=== PATIENT | female | born 1950 | race Caucasian/White ===

== ENCOUNTER 2017-01-07 04:50 | Inpatient (IN) ==
[2017-01-07] MEDS ORDERED: Ondansetron 4 MG/2 ML VIAL IVP ONE (05:09)
[2017-01-07] MEDS ORDERED: 0.9 % Sodium Chloride 1,000 ML IVC ONE (05:09)
[2017-01-07 05:21] LABS: Basophils % 0.2 %; Eosinophils % 0.2 %; Hematocrit 32.4 % (35.3-44.9); Hemoglobin 11.4 g/dL (11.5-15.4); Immature Granulocytes % 0.7 % (0-4); Lymphocytes # 0.9 K/mcL (0.6-4.6); Lymphocytes % 9.8 %; Mean Corpuscular HGB Conc 35.2 g/dL (31.6-35.5); Mean Corpuscular Hemoglobin 34.7 pg (28.0-33.3); Mean Corpuscular Volume 98.5 fL (83.0-100.0); Mean Platelet Volume 9.2 fL (9.4-12.4); Monocytes # 0.4 K/mcL (0.0-1.3); Neutrophils # 7.5 K/mcL (1.6-8.9); Platelet Count 104 K/mcL (140-400); Red Blood Count 3.29 M/mcL (3.82-4.97); Red Cell Distribution Width 13.8 % (11.5-14.5); Segmented Neutrophils % 85.1 %
[2017-01-07 05:34] LABS: Bilirubin,Urine Negative (Negative); Blood,Urine Moderate (Negative); Clarity,Urine Cloudy (Clear); Color,Urine Yellow (Yellow); Glucose,Urine (UA) 100 mg/dL (Normal); Ketones,Urine Trace mg/dL (Negative); Leukocyte Esterase,Urine Large (Negative); Nitrite,Urine Positive (Negative); PH,Urine 6.5 pH Units (5.0-8.0); Protein,Urine Trace mg/dL (Neg-Trace); Specific Gravity,Urine 1.013 (1.010-1.025); Urobilinogen,Urine Normal (Normal)
[2017-01-07 05:37] LABS: Bacteria,Urine Many per hpf (None-Few); Hyaline Casts,Urine None Seen per lpf (None-Few); RBC,Urine 30-50 per hpf (0-3); Squamous Epithelial Cell,Urine Few per lpf (None-Few); WBC,Urine 50-100 per hpf (0-3)
[2017-01-07 05:38] LABS: Alanine Aminotransferase 25 Units/L (0-55); Albumin 4.2 g/dL (3.5-5.0); Albumin/Globulin Ratio 1.2 (1.1-2.2); Alkaline Phosphatase 109 Units/L (38-126); Aspartate Amino Transferase 23 Units/L (5-34); BUN/Creatinine Ratio 14 (6-26); Bilirubin,Direct 0.3 mg/dL (0.0-0.5); Bilirubin,Indirect 0.7 mg/dL (0.0-1.2); Blood Urea Nitrogen 11 mg/dL (7-20); Calcium 9.6 mg/dL (8.6-10.8); Carbon Dioxide 22 mEq/L (19-29); Chloride 106 mEq/L (98-109); Globulin 3.4 g/dL (2.4-3.5); Glucose 204 mg/dL (70-99); Osmolality,Calculated 297 (280-300); Potassium 3.4 mEq/L (3.5-4.5); Sodium 141 mEq/L (136-145); Total Protein 7.6 g/dL (6.0-8.3); eGFR For African Americans > 60 (> 60); eGFR For Non-African Americans > 60 (> 60)
[2017-01-07 05:39] LABS: Lipase < 10 Units/L (8-78)
--- NOTE | 2017-01-07 06:51 | Emergency Department Note ---
Disposition Clinical Impression: UTI (urinary tract infection) Qualifiers: Urinary tract infection type: acute cystitis Hematuria presence: with hematuria Qualified Code(s): N30.01 - Acute cystitis with hematuria Disposition: Still a Patient Condition: Fair Referrals: NONE,PCP [Primary Care Provider] - Forms: Work/School Release, ED Satisfaction Letter Abdominal Pain HPI - General Chief Complaint: ED Abdominal Pain Stated Complaint: Abdominal Pain/Nausea/Vomiting Time Seen by Provider: 01/07/17 04:55 Source: patient, EMS Mode of arrival: EMS Limitations: no limitations Nursing Notes Reviewed: Yes Vital Signs Reviewed: Yes - History of Present Illness Pt Subjective Complaint: abdominal pain Onset (ago): hour(s) Consistency: constant, Worsening Location: suprapubic Pain Severity: mild Pain Scale: 2 Quality: fullness, dull Radiation: none Migration to: no migration Improves with: nothing Worsens with: nothing Context: recent antibiotic use Associated symptoms: Reports: nausea, vomiting, chills. Denies: diarrhea, fever , constipation, dysuria, hematemesis, hematochezia, melena, hematuria, anorexia , syncope Treatments prior to arrival: none - Related Data Allergies Allergy/AdvReac Type Severity Reaction Status Date / Time naproxen AdvReac Nausea Verified 01/07/17 04:52 All systems ED: reviewed and negative except as stated. Review of Systems: As Per HPI Constitutional: Reports: chills. Denies: fever, night sweats Cardiovascular: Denies: chest pain, palpitations, dyspnea on exertion, orthopnea , edema, syncope Respiratory: Denies: cough, dyspnea, wheezes Gastrointestinal: Reports: as per HPI, abdominal pain, nausea, vomiting. Denies : diarrhea, constipation, hematemesis, melena, hematochezia Genitourinary: Denies: urgency, dysuria, frequency, hematuria, discharge Musculoskeletal: Denies: back pain, neck pain, joint swelling, arthralgia Integumentary: Denies: rash Neurological: Denies: headache, weakness Hematological/Lymphatic: Denies: easy bleeding, easy bruising Abdominal Pain PMH - Past Medical History Medical history: Reports: cancer, hypertension Female Surgical History: Reports: cancer surgery, cholecystectomy, coronary bypass (CABG), hysterectomy Psychiatric history: Reports: depression - Social History Smoking status: Never smoker Alcohol use: Reports: none Drug use: Reports: none Physical Exam - General Limitations: no limitations General appearance: alert, in no apparent distress - Head Head exam: atraumatic, normocephalic, normal inspection - Eye Eye exam: Present: normal appearance, PERRL. Absent: scleral icterus, conjunctival injection, periorbital swelling - ENT ENT exam: normal exam, normal oropharynx, mucous membranes moist - Neck Neck exam: Present: normal inspection, full ROM, trachea midline. Absent: meningismus - Chest Chest inspection: Present: normal inspection - Respiratory Respiratory exam: Present: normal lung sounds bilaterally. Absent: respiratory distress, wheezes, stridor - Cardiovascular Cardiovascular exam: Present: regular rate, normal rhythm, normal heart sounds - Abdominal Exam Abdominal exam: Present: soft, tenderness, normal bowel sounds. Absent: distention, guarding, rebound, rigidity, organomegaly, ascites, mass, pulsatile mass - Extremities Exam Extremities exam: Present: normal inspection, full ROM - Expanded Lower Extremity Exam Gait: observed and normal - Back Exam Back exam: Present: normal inspection, full ROM. Absent: CVA tenderness (R), CVA tenderness (L) - Neurological Exam Neurological exam: Present: alert, oriented X3, CN II-XII intact - Psychiatric Psychiatric exam: Present: normal affect, normal mood - Skin Skin exam: Present: warm, dry, intact, normal color Course Course Narrative: Patient presents from home by squad for evaluation of abdominal pain. It started acutely and was associated with nausea and vomiting. She has had no diarrhea or constipation. She has never had any abdominal surgeries. She denies dysuria, increased frequency, urgency or hematuria. She appears uncomfortable but is nontoxic. Vitals are normal. She has no fever. Labs and CT have been ordered as she is tender to palpation of the lower abdomen. EKG was done as well. It shows a normal sinus rhythm with a right ventricular conduction delay. She does not have a previous EKG available for comparison. Patient's labs show a significant urinary tract infection with hematuria. Blood work is unremarkable. Preliminary CT report shows obstructive uropathy with a 3 mm stone in the distal left ureter, possibly another stone but evaluation is suboptimal due to atherosclerotic plaque in the adjacent vessels. She also has intrarenal stones. Urology has been paged. Case has been discussed with Dr. Linder. He has seen the patient and agrees with the assessment, plan. Care of this patient is being transferred to the day shift provider Sabas Calvin CNP, after discussion of the case. Vital Signs Temperature 97.5 F L 01/07/17 04:52 Pulse Rate 74 01/07/17 04:52 Respiratory Rate 22 01/07/17 04:52 Blood Pressure 180/90 01/07/17 04:52 O2 Sat by Pulse Oximetry 100 01/07/17 04:52 Temperature 97.5 F L 01/07/17 04:52 Pulse Rate 76 01/07/17 06:23 Respiratory Rate 18 01/07/17 06:23 Blood Pressure 143/51 01/07/17 06:23 O2 Sat by Pulse Oximetry 94 01/07/17 06:23 Oxygen Delivery Oxygen Delivery Room Air Abdominal Pain - Medical Records Medical records reviewed: Yes I reviewed the patient's medical records. Laboratory Last Values WBC 8.8 K/mcL (4.3-11.1) 01/07/17 05:05 RBC 3.29 M/mcL (3.82-4.97) L 01/07/17 05:05 Hgb 11.4 g/dL (11.5-15.4) L 01/07/17 05:05 Hct 32.4 % (35.3-44.9) L 01/07/17 05:05 MCV 98.5 fL (83.0-100.0) 01/07/17 05:05 MCH 34.7 pg (28.0-33.3) H 01/07/17 05:05 MCHC 35.2 g/dL (31.6-35.5) 01/07/17 05:05 RDW 13.8 % (11.5-14.5) 01/07/17 05:05 Plt Count 104 K/mcL (140-400) L 01/07/17 05:05 MPV 9.2 fL (9.4-12.4) L 01/07/17 05:05 Immature Gran % 0.7 % (0-4) 01/07/17 05:05 Seg Neutrophils % 85.1 % 01/07/17 05:05 Lymphocytes % 9.8 % 01/07/17 05:05 Monocytes % 4.0 % 01/07/17 05:05 Eosinophils % 0.2 % 01/07/17 05:05 Basophils % 0.2 % 01/07/17 05:05 Neutrophils # 7.5 K/mcL (1.6-8.9) 01/07/17 05:05 Lymphocytes # 0.9 K/mcL (0.6-4.6) 01/07/17 05:05 Monocytes # 0.4 K/mcL (0.0-1.3) 01/07/17 05:05 Eosinophils # 0.0 K/mcL (0.0-0.6) 01/07/17 05:05 Basophils # 0.0 K/mcL (0.0-0.2) 01/07/17 05:05 Sodium 141 mEq/L (136-145) 01/07/17 05:05 Potassium 3.4 mEq/L (3.5-4.5) L 01/07/17 05:05 Chloride 106 mEq/L (98-109) 01/07/17 05:05 Carbon Dioxide 22 mEq/L (19-29) 01/07/17 05:05 BUN 11 mg/dL (7-20) 01/07/17 05:05 Creatinine 0.81 mg/dL (0.57-1.11) 01/07/17 05:05 Est GFR ( Amer) > 60 (> 60) 01/07/17 05:05 Est GFR (Non-Af Amer) > 60 (> 60) 01/07/17 05:05 BUN/Creatinine Ratio 14 (6-26) 01/07/17 05:05 Glucose 204 mg/dL (70-99) H 01/07/17 05:05 Calculated Osmolality 297 (280-300) 01/07/17 05:05 Calcium 9.6 mg/dL (8.6-10.8) 01/07/17 05:05 Total Bilirubin 1.0 mg/dL (0.2-1.2) 01/07/17 05:05 Direct Bilirubin 0.3 mg/dL (0.0-0.5) 01/07/17 05:05 Indirect Bilirubin 0.7 mg/dL (0.0-1.2) 01/07/17 05:05 AST 23 Units/L (5-34) 01/07/17 05:05 ALT 25 Units/L (0-55) 01/07/17 05:05 Alkaline Phosphatase 109 Units/L (38-126) 01/07/17 05:05 Troponin I 0.00 ng/mL (0-0.03) 01/07/17 05:05 Serum Total Protein 7.6 g/dL (6.0-8.3) 01/07/17 05:05 Albumin 4.2 g/dL (3.5-5.0) 01/07/17 05:05 Globulin 3.4 g/dL (2.4-3.5) 01/07/17 05:05 Albumin/Globulin Ratio 1.2 (1.1-2.2) 01/07/17 05:05 Lipase < 10 Units/L (8-78) 01/07/17 05:05 Urine Color Yellow (Yellow) 01/07/17 05:21 Urine Clarity Cloudy (Clear) A 01/07/17 05:21 Urine pH 6.5 pH Units (5.0-8.0) 01/07/17 05:21 Ur Specific [place] 1.013 (1.010-1.025) 01/07/17 05:21 Urine Protein Trace mg/dL (Neg-Trace) 01/07/17 05:21 Urine Glucose (UA) 100 mg/dL (Normal) H 01/07/17 05:21 Urine Ketones Trace mg/dL (Negative) H 01/07/17 05:21 Urine Blood Moderate (Negative) H 01/07/17 05:21 Urine Nitrite Positive (Negative) A 01/07/17 05:21 Urine Bilirubin Negative (Negative) 01/07/17 05:21 Urine Urobilinogen Normal mg/dL (Normal) 01/07/17 05:21 Ur Leukocyte Esterase Large (Negative) H 01/07/17 05:21 Urine Microscopic RBC 30-50 per hpf (0-3) H 01/07/17 05:21 Urine Microscopic WBC 50-100 per hpf (0-3) H 01/07/17 05:21 Ur Squamous Epith Cells Few per lpf (None-Few) 01/07/17 05:21 Urine Bacteria Many per hpf (None-Few) H 01/07/17 05:21 Hyaline Casts None Seen per lpf (None-Few) 01/07/17 05:21 Ur Culture Indicated? YES (NO) A 01/07/17 05:21 - Lab Data Lab results reviewed: Yes I reviewed the patient's lab results. Lab results narrative: Laboratory Last Values WBC 8.8 K/mcL (4.3-11.1) 01/07/17 05:05 RBC 3.29 M/mcL (3.82-4.97) L 01/07/17 05:05 Hgb 11.4 g/dL (11.5-15.4) L 01/07/17 05:05 Hct 32.4 % (35.3-44.9) L 01/07/17 05:05 MCV 98.5 fL (83.0-100.0) 01/07/17 05:05 MCH 34.7 pg (28.0-33.3) H 01/07/17 05:05 MCHC 35.2 g/dL (31.6-35.5) 01/07/17 05:05 RDW 13.8 % (11.5-14.5) 01/07/17 05:05 Plt Count 104 K/mcL (140-400) L 01/07/17 05:05 MPV 9.2 fL (9.4-12.4) L 01/07/17 05:05 Immature Gran % 0.7 % (0-4) 01/07/17 05:05 Seg Neutrophils % 85.1 % 01/07/17 05:05 Lymphocytes % 9.8 % 01/07/17 05:05 Monocytes % 4.0 % 01/07/17 05:05 Eosinophils % 0.2 % 01/07/17 05:05 Basophils % 0.2 % 01/07/17 05:05 Neutrophils # 7.5 K/mcL (1.6-8.9) 01/07/17 05:05 Lymphocytes # 0.9 K/mcL (0.6-4.6) 01/07/17 05:05 Monocytes # 0.4 K/mcL (0.0-1.3) 01/07/17 05:05 Eosinophils # 0.0 K/mcL (0.0-0.6) 01/07/17 05:05 Basophils # 0.0 K/mcL (0.0-0.2) 01/07/17 05:05 Sodium 141 mEq/L (136-145) 01/07/17 05:05 Potassium 3.4 mEq/L (3.5-4.5) L 01/07/17 05:05 Chloride 106 mEq/L (98-109) 01/07/17 05:05 Carbon Dioxide 22 mEq/L (19-29) 01/07/17 05:05 BUN 11 mg/dL (7-20) 01/07/17 05:05 Creatinine 0.81 mg/dL (0.57-1.11) 01/07/17 05:05 Est GFR ( Amer) > 60 (> 60) 01/07/17 05:05 Est GFR (Non-Af Amer) > 60 (> 60) 01/07/17 05:05 BUN/Creatinine Ratio 14 (6-26) 01/07/17 05:05 Glucose 204 mg/dL (70-99) H 01/07/17 05:05 Calculated Osmolality 297 (280-300) 01/07/17 05:05 Calcium 9.6 mg/dL (8.6-10.8) 01/07/17 05:05 Total Bilirubin 1.0 mg/dL (0.2-1.2) 01/07/17 05:05 Direct Bilirubin 0.3 mg/dL (0.0-0.5) 01/07/17 05:05 Indirect Bilirubin 0.7 mg/dL (0.0-1.2) 01/07/17 05:05 AST 23 Units/L (5-34) 01/07/17 05:05 ALT 25 Units/L (0-55) 01/07/17 05:05 Alkaline Phosphatase 109 Units/L (38-126) 01/07/17 05:05 Troponin I 0.00 ng/mL (0-0.03) 01/07/17 05:05 Serum Total Protein 7.6 g/dL (6.0-8.3) 01/07/17 05:05 Albumin 4.2 g/dL (3.5-5.0) 01/07/17 05:05 Globulin 3.4 g/dL (2.4-3.5) 01/07/17 05:05 Albumin/Globulin Ratio 1.2 (1.1-2.2) 01/07/17 05:05 Lipase < 10 Units/L (8-78) 01/07/17 05:05 Urine Color Yellow (Yellow) 01/07/17 05:21 Urine Clarity Cloudy (Clear) A 01/07/17 05:21 Urine pH 6.5 pH Units (5.0-8.0) 01/07/17 05:21 Ur Specific [place] 1.013 (1.010-1.025) 01/07/17 05:21 Urine Protein Trace mg/dL (Neg-Trace) 01/07/17 05:21 Urine Glucose (UA) 100 mg/dL (Normal) H 01/07/17 05:21 Urine Ketones Trace mg/dL (Negative) H 01/07/17 05:21 Urine Blood Moderate (Negative) H 01/07/17 05:21 Urine Nitrite Positive (Negative) A 01/07/17 05:21 Urine Bilirubin Negative (Negative) 01/07/17 05:21 Urine Urobilinogen Normal mg/dL (Normal) 01/07/17 05:21 Ur Leukocyte Esterase Large (Negative) H 01/07/17 05:21 Urine Microscopic RBC 30-50 per hpf (0-3) H 01/07/17 05:21 Urine Microscopic WBC 50-100 per hpf (0-3) H 01/07/17 05:21 Ur Squamous Epith Cells Few per lpf (None-Few) 01/07/17 05:21 Urine Bacteria Many per hpf (None-Few) H 01/07/17 05:21 Hyaline Casts None Seen per lpf (None-Few) 01/07/17 05:21 Ur Culture Indicated? YES (NO) A 01/07/17 05:21 Result diagrams: 01/07/17 05:05 01/07/17 05:05 Lab Results 01/07/17 01/07/17 01/07/17 Range/Units 05:05 05:05 05:05 WBC 8.8 (4.3-11.1) K/mcL RBC 3.29 L (3.82-4.97) M/mcL Hgb 11.4 L (11.5-15.4) g/dL Hct 32.4 L (35.3-44.9) % MCV 98.5 (83.0-100.0) fL MCH 34.7 H (28.0-33.3) pg MCHC 35.2 (31.6-35.5) g/dL RDW 13.8 (11.5-14.5) % Plt Count 104 L (140-400) K/mcL MPV 9.2 L (9.4-12.4) fL Immature Gran % 0.7 (0-4) % Seg Neutrophils % 85.1 % Lymphocytes % 9.8 % Monocytes % 4.0 % Eosinophils % 0.2 % Basophils % 0.2 % Neutrophils # 7.5 (1.6-8.9) K/mcL Lymphocytes # 0.9 (0.6-4.6) K/mcL Monocytes # 0.4 (0.0-1.3) K/mcL Eosinophils # 0.0 (0.0-0.6) K/mcL Basophils # 0.0 (0.0-0.2) K/mcL Sodium 141 (136-145) mEq/L Potassium 3.4 L (3.5-4.5) mEq/L Chloride 106 (98-109) mEq/L Carbon Dioxide 22 (19-29) mEq/L BUN 11 (7-20) mg/dL Creatinine 0.81 (0.57-1.11) mg/dL Est GFR ( Amer) > 60 (> 60) Est GFR (Non-Af Amer) > 60 (> 60) BUN/Creatinine Ratio 14 (6-26) Glucose 204 H (70-99) mg/dL Calculated Osmolality 297 (280-300) Calcium 9.6 (8.6-10.8) mg/dL Total Bilirubin 1.0 (0.2-1.2) mg/dL Direct Bilirubin 0.3 (0.0-0.5) mg/dL Indirect Bilirubin 0.7 (0.0-1.2) mg/dL AST 23 (5-34) Units/L ALT 25 (0-55) Units/L Alkaline Phosphatase 109 (38-126) Units/L Troponin I 0.00 (0-0.03) ng/mL Serum Total Protein 7.6 (6.0-8.3) g/dL Albumin 4.2 (3.5-5.0) g/dL Globulin 3.4 (2.4-3.5) g/dL Albumin/Globulin Ratio 1.2 (1.1-2.2) Lipase < 10 (8-78) Units/L Urine Color (Yellow) Urine Clarity (Clear) Urine pH (5.0-8.0) pH Units Ur Specific [place] (1.010-1.025) Urine Protein (Neg-Trace) mg/dL Urine Glucose (UA) (Normal) mg/dL Urine Ketones (Negative) mg/dL Urine Blood (Negative) Urine Nitrite (Negative) Urine Bilirubin (Negative) Urine Urobilinogen (Normal) mg/dL Ur Leukocyte Esterase (Negative) Urine Microscopic RBC (0-3) per hpf Urine Microscopic WBC (0-3) per hpf Ur Squamous Epith Cells (None-Few) per lpf Urine Bacteria (None-Few) per hpf Hyaline Casts (None-Few) per lpf Ur Culture Indicated? (NO) 01/07/17 Range/Units 05:21 WBC (4.3-11.1) K/mcL RBC (3.82-4.97) M/mcL Hgb (11.5-15.4) g/dL Hct (35.3-44.9) % MCV (83.0-100.0) fL MCH (28.0-33.3) pg MCHC (31.6-35.5) g/dL RDW (11.5-14.5) % Plt Count (140-400) K/mcL MPV (9.4-12.4) fL Immature Gran % (0-4) % Seg Neutrophils % % Lymphocytes % % Monocytes % % Eosinophils % % Basophils % % Neutrophils # (1.6-8.9) K/mcL Lymphocytes # (0.6-4.6) K/mcL Monocytes # (0.0-1.3) K/mcL Eosinophils # (0.0-0.6) K/mcL Basophils # (0.0-0.2) K/mcL Sodium (136-145) mEq/L Potassium (3.5-4.5) mEq/L Chloride (98-109) mEq/L Carbon Dioxide (19-29) mEq/L BUN (7-20) mg/dL Creatinine (0.57-1.11) mg/dL Est GFR ( Amer) (> 60) Est GFR (Non-Af Amer) (> 60) BUN/Creatinine Ratio (6-26) Glucose (70-99) mg/dL Calculated Osmolality (280-300) Calcium (8.6-10.8) mg/dL Total Bilirubin (0.2-1.2) mg/dL Direct Bilirubin (0.0-0.5) mg/dL Indirect Bilirubin (0.0-1.2) mg/dL AST (5-34) Units/L ALT (0-55) Units/L Alkaline Phosphatase (38-126) Units/L Troponin I (0-0.03) ng/mL Serum Total Protein (6.0-8.3) g/dL Albumin (3.5-5.0) g/dL Globulin (2.4-3.5) g/dL Albumin/Globulin Ratio (1.1-2.2) Lipase (8-78) Units/L Urine Color Yellow (Yellow) Urine Clarity Cloudy A (Clear) Urine pH 6.5 (5.0-8.0) pH Units Ur Specific [place] 1.013 (1.010-1.025) Urine Protein Trace (Neg-Trace) mg/dL Urine Glucose (UA) 100 H (Normal) mg/dL Urine Ketones Trace H (Negative) mg/dL Urine Blood Moderate H (Negative) Urine Nitrite Positive A (Negative) Urine Bilirubin Negative (Negative) Urine Urobilinogen Normal (Normal) mg/dL Ur Leukocyte Esterase Large H (Negative) Urine Microscopic RBC 30-50 H (0-3) per hpf Urine Microscopic WBC 50-100 H (0-3) per hpf Ur Squamous Epith Cells Few (None-Few) per lpf Urine Bacteria Many H (None-Few) per hpf Hyaline Casts None Seen (None-Few) per lpf Ur Culture Indicated? YES A (NO) - Radiology Data Radiology results reviewed: Yes I reviewed the patient's radiology results. Abdomen/Pelvis CT 01/07/17 05:18 IMPRESSION: 1. Findings consistent with presence of left-sided obstructive uropathy. Optimum evaluation of the left distal ureter 4 radiopaque calculus is somewhat suboptimal due to presence of prominent calcific atherosclerotic plaque within adjacent internal iliac vessels. There is question of presence of 3 mm calculus within the left distal ureter in the pelvis. Follow-up ureteroscopy/ retrograde pyelogram may be helpful for more complete evaluation. 2. Findings consistent with presence of bilateral intrarenal calculi. On the right, 9 mm calculus is visualized in the region of the renal pelvis as described above. D/ / Lance Tristan MD / Lance Tristan MD Interpreting Provider: Lance Tristan MD
--- NOTE | 2017-01-07 07:11 | Emergency Department Note ---
Disposition Clinical Impression: Acute unilateral obstructive uropathy, Ureteral calculus, left UTI (urinary tract infection) Qualifiers: Urinary tract infection type: acute cystitis Hematuria presence: with hematuria Qualified Code(s): N30.01 - Acute cystitis with hematuria Disposition: Admitted As Inpatient Condition: Fair Referrals: NONE,PCP [Primary Care Provider] - Forms: ED Satisfaction Letter, Work/School Release Time of Disposition: 07:12 Abdominal Pain HPI - General Chief Complaint: ED Abdominal Pain Stated Complaint: Abdominal Pain/Nausea/Vomiting Time Seen by Provider: 01/07/17 04:55 Source: patient, EMS Mode of arrival: EMS - History of Present Illness Pt Subjective Complaint: abdominal pain Location: suprapubic Pain Severity: mild Pain Scale: 2 Quality: fullness, dull Migration to: no migration Improves with: nothing Worsens with: nothing Context: recent antibiotic use Associated symptoms: Reports: nausea, vomiting, chills. Denies: diarrhea, fever , constipation, dysuria, hematemesis, hematochezia, melena, hematuria, anorexia , syncope - Related Data Allergies Allergy/AdvReac Type Severity Reaction Status Date / Time naproxen AdvReac Nausea Verified 01/07/17 04:52 Constitutional: Reports: chills. Denies: fever, night sweats Cardiovascular: Denies: chest pain, palpitations, dyspnea on exertion, orthopnea , edema, syncope Respiratory: Denies: cough, dyspnea, wheezes Gastrointestinal: Reports: as per HPI, abdominal pain, nausea, vomiting. Denies : diarrhea, constipation, hematemesis, melena, hematochezia Genitourinary: Denies: urgency, dysuria, frequency, hematuria, discharge Musculoskeletal: Denies: back pain, neck pain, joint swelling, arthralgia Integumentary: Denies: rash Neurological: Denies: headache, weakness Hematological/Lymphatic: Denies: easy bleeding, easy bruising Abdominal Pain PMH - Past Medical History Medical history: Reports: cancer, hypertension Female Surgical History: Reports: cancer surgery, cholecystectomy, coronary bypass (CABG), hysterectomy Psychiatric history: Reports: depression - Social History Smoking status: Never smoker Alcohol use: Reports: none Drug use: Reports: none Physical Exam - General Limitations: no limitations General appearance: alert, in no apparent distress Course Course Narrative: 0600: I have assumed care of this patient from Bianca Boyle PA-C due to mid- level shift change. Please see Bianca's notes for any care and documentation prior to my arrival. Briefly, the patient is a 66-year-old alert and oriented nontoxic appearing female who presented by EMS for complaints of a sudden onset of left lower quadrant pain as well as suprapubic discomfort, chills, nausea, and vomiting. She denied any outright fevers, diarrhea, constipation, or urinary symptoms. Laboratory results were obtained and a CT of the abdomen and pelvis was also performed. The patient is positive for a urinary tract infection with hematuria. CT imaging showed a left-sided obstructive uropathy from presumably a 3 mm distal ureter calculus. Dr. Linder has had a face-to- face evaluation with the patient and recommends urology consultation. 0705: I spoke with Dr. Baltazar, urologist nutrition instructor. Dr. Baltazar recommends the patient be admitted to the hospitalist service for IV antibiotics and inpatient urology consultation. At this time, I am awaiting a return call from the [facility] hospitalist. The patient has been made aware of this plan and is in agreement. She verbalizes no complaints or concerns at this time. 0745: I spoke with Dr. Perdue of the hospitalist service. Dr. Perdue has accepted the patient for admission to his service with urology consultation. Vital Signs Temperature 97.5 F L 01/07/17 04:52 Pulse Rate 74 01/07/17 04:52 Respiratory Rate 22 01/07/17 04:52 Blood Pressure 180/90 01/07/17 04:52 O2 Sat by Pulse Oximetry 100 01/07/17 04:52 Temperature 97.5 F L 01/07/17 04:52 Pulse Rate 76 01/07/17 06:23 Respiratory Rate 18 01/07/17 06:23 Blood Pressure 143/51 01/07/17 06:23 O2 Sat by Pulse Oximetry 94 01/07/17 06:23 Oxygen Delivery Oxygen Delivery Room Air Abdominal Pain - Medical Records Medical records reviewed: Yes I reviewed the patient's medical records. - Lab Data Lab results reviewed: Yes I reviewed the patient's lab results. Lab results narrative: Laboratory Last Values WBC 8.8 K/mcL (4.3-11.1) 01/07/17 05:05 RBC 3.29 M/mcL (3.82-4.97) L 01/07/17 05:05 Hgb 11.4 g/dL (11.5-15.4) L 01/07/17 05:05 Hct 32.4 % (35.3-44.9) L 01/07/17 05:05 MCV 98.5 fL (83.0-100.0) 01/07/17 05:05 MCH 34.7 pg (28.0-33.3) H 01/07/17 05:05 MCHC 35.2 g/dL (31.6-35.5) 01/07/17 05:05 RDW 13.8 % (11.5-14.5) 01/07/17 05:05 Plt Count 104 K/mcL (140-400) L 01/07/17 05:05 MPV 9.2 fL (9.4-12.4) L 01/07/17 05:05 Immature Gran % 0.7 % (0-4) 01/07/17 05:05 Seg Neutrophils % 85.1 % 01/07/17 05:05 Lymphocytes % 9.8 % 01/07/17 05:05 Monocytes % 4.0 % 01/07/17 05:05 Eosinophils % 0.2 % 01/07/17 05:05 Basophils % 0.2 % 01/07/17 05:05 Neutrophils # 7.5 K/mcL (1.6-8.9) 01/07/17 05:05 Lymphocytes # 0.9 K/mcL (0.6-4.6) 01/07/17 05:05 Monocytes # 0.4 K/mcL (0.0-1.3) 01/07/17 05:05 Eosinophils # 0.0 K/mcL (0.0-0.6) 01/07/17 05:05 Basophils # 0.0 K/mcL (0.0-0.2) 01/07/17 05:05 Sodium 141 mEq/L (136-145) 01/07/17 05:05 Potassium 3.4 mEq/L (3.5-4.5) L 01/07/17 05:05 Chloride 106 mEq/L (98-109) 01/07/17 05:05 Carbon Dioxide 22 mEq/L (19-29) 01/07/17 05:05 BUN 11 mg/dL (7-20) 01/07/17 05:05 Creatinine 0.81 mg/dL (0.57-1.11) 01/07/17 05:05 Est GFR ( Amer) > 60 (> 60) 01/07/17 05:05 Est GFR (Non-Af Amer) > 60 (> 60) 01/07/17 05:05 BUN/Creatinine Ratio 14 (6-26) 01/07/17 05:05 Glucose 204 mg/dL (70-99) H 01/07/17 05:05 Calculated Osmolality 297 (280-300) 01/07/17 05:05 Calcium 9.6 mg/dL (8.6-10.8) 01/07/17 05:05 Total Bilirubin 1.0 mg/dL (0.2-1.2) 01/07/17 05:05 Direct Bilirubin 0.3 mg/dL (0.0-0.5) 01/07/17 05:05 Indirect Bilirubin 0.7 mg/dL (0.0-1.2) 01/07/17 05:05 AST 23 Units/L (5-34) 01/07/17 05:05 ALT 25 Units/L (0-55) 01/07/17 05:05 Alkaline Phosphatase 109 Units/L (38-126) 01/07/17 05:05 Troponin I 0.00 ng/mL (0-0.03) 01/07/17 05:05 Serum Total Protein 7.6 g/dL (6.0-8.3) 01/07/17 05:05 Albumin 4.2 g/dL (3.5-5.0) 01/07/17 05:05 Globulin 3.4 g/dL (2.4-3.5) 01/07/17 05:05 Albumin/Globulin Ratio 1.2 (1.1-2.2) 01/07/17 05:05 Lipase < 10 Units/L (8-78) 01/07/17 05:05 Urine Color Yellow (Yellow) 01/07/17 05:21 Urine Clarity Cloudy (Clear) A 01/07/17 05:21 Urine pH 6.5 pH Units (5.0-8.0) 01/07/17 05:21 Ur Specific [place] 1.013 (1.010-1.025) 01/07/17 05:21 Urine Protein Trace mg/dL (Neg-Trace) 01/07/17 05:21 Urine Glucose (UA) 100 mg/dL (Normal) H 01/07/17 05:21 Urine Ketones Trace mg/dL (Negative) H 01/07/17 05:21 Urine Blood Moderate (Negative) H 01/07/17 05:21 Urine Nitrite Positive (Negative) A 01/07/17 05:21 Urine Bilirubin Negative (Negative) 01/07/17 05:21 Urine Urobilinogen Normal mg/dL (Normal) 01/07/17 05:21 Ur Leukocyte Esterase Large (Negative) H 01/07/17 05:21 Urine Microscopic RBC 30-50 per hpf (0-3) H 01/07/17 05:21 Urine Microscopic WBC 50-100 per hpf (0-3) H 01/07/17 05:21 Ur Squamous Epith Cells Few per lpf (None-Few) 01/07/17 05:21 Urine Bacteria Many per hpf (None-Few) H 01/07/17 05:21 Hyaline Casts None Seen per lpf (None-Few) 01/07/17 05:21 Ur Culture Indicated? YES (NO) A 01/07/17 05:21 Result diagrams: 01/07/17 05:05 01/07/17 05:05 Lab Results 01/07/17 01/07/17 01/07/17 Range/Units 05:05 05:05 05:05 WBC 8.8 (4.3-11.1) K/mcL RBC 3.29 L (3.82-4.97) M/mcL Hgb 11.4 L (11.5-15.4) g/dL Hct 32.4 L (35.3-44.9) % MCV 98.5 (83.0-100.0) fL MCH 34.7 H (28.0-33.3) pg MCHC 35.2 (31.6-35.5) g/dL RDW 13.8 (11.5-14.5) % Plt Count 104 L (140-400) K/mcL MPV 9.2 L (9.4-12.4) fL Immature Gran % 0.7 (0-4) % Seg Neutrophils % 85.1 % Lymphocytes % 9.8 % Monocytes % 4.0 % Eosinophils % 0.2 % Basophils % 0.2 % Neutrophils # 7.5 (1.6-8.9) K/mcL Lymphocytes # 0.9 (0.6-4.6) K/mcL Monocytes # 0.4 (0.0-1.3) K/mcL Eosinophils # 0.0 (0.0-0.6) K/mcL Basophils # 0.0 (0.0-0.2) K/mcL Sodium 141 (136-145) mEq/L Potassium 3.4 L (3.5-4.5) mEq/L Chloride 106 (98-109) mEq/L Carbon Dioxide 22 (19-29) mEq/L BUN 11 (7-20) mg/dL Creatinine 0.81 (0.57-1.11) mg/dL Est GFR ( Amer) > 60 (> 60) Est GFR (Non-Af Amer) > 60 (> 60) BUN/Creatinine Ratio 14 (6-26) Glucose 204 H (70-99) mg/dL Calculated Osmolality 297 (280-300) Calcium 9.6 (8.6-10.8) mg/dL Total Bilirubin 1.0 (0.2-1.2) mg/dL Direct Bilirubin 0.3 (0.0-0.5) mg/dL Indirect Bilirubin 0.7 (0.0-1.2) mg/dL AST 23 (5-34) Units/L ALT 25 (0-55) Units/L Alkaline Phosphatase 109 (38-126) Units/L Troponin I 0.00 (0-0.03) ng/mL Serum Total Protein 7.6 (6.0-8.3) g/dL Albumin 4.2 (3.5-5.0) g/dL Globulin 3.4 (2.4-3.5) g/dL Albumin/Globulin Ratio 1.2 (1.1-2.2) Lipase < 10 (8-78) Units/L Urine Color (Yellow) Urine Clarity (Clear) Urine pH (5.0-8.0) pH Units Ur Specific [place] (1.010-1.025) Urine Protein (Neg-Trace) mg/dL Urine Glucose (UA) (Normal) mg/dL Urine Ketones (Negative) mg/dL Urine Blood (Negative) Urine Nitrite (Negative) Urine Bilirubin (Negative) Urine Urobilinogen (Normal) mg/dL Ur Leukocyte Esterase (Negative) Urine Microscopic RBC (0-3) per hpf Urine Microscopic WBC (0-3) per hpf Ur Squamous Epith Cells (None-Few) per lpf Urine Bacteria (None-Few) per hpf Hyaline Casts (None-Few) per lpf Ur Culture Indicated? (NO) 01/07/17 Range/Units 05:21 WBC (4.3-11.1) K/mcL RBC (3.82-4.97) M/mcL Hgb (11.5-15.4) g/dL Hct (35.3-44.9) % MCV (83.0-100.0) fL MCH (28.0-33.3) pg MCHC (31.6-35.5) g/dL RDW (11.5-14.5) % Plt Count (140-400) K/mcL MPV (9.4-12.4) fL Immature Gran % (0-4) % Seg Neutrophils % % Lymphocytes % % Monocytes % % Eosinophils % % Basophils % % Neutrophils # (1.6-8.9) K/mcL Lymphocytes # (0.6-4.6) K/mcL Monocytes # (0.0-1.3) K/mcL Eosinophils # (0.0-0.6) K/mcL Basophils # (0.0-0.2) K/mcL Sodium (136-145) mEq/L Potassium (3.5-4.5) mEq/L Chloride (98-109) mEq/L Carbon Dioxide (19-29) mEq/L BUN (7-20) mg/dL Creatinine (0.57-1.11) mg/dL Est GFR ( Amer) (> 60) Est GFR (Non-Af Amer) (> 60) BUN/Creatinine Ratio (6-26) Glucose (70-99) mg/dL Calculated Osmolality (280-300) Calcium (8.6-10.8) mg/dL Total Bilirubin (0.2-1.2) mg/dL Direct Bilirubin (0.0-0.5) mg/dL Indirect Bilirubin (0.0-1.2) mg/dL AST (5-34) Units/L ALT (0-55) Units/L Alkaline Phosphatase (38-126) Units/L Troponin I (0-0.03) ng/mL Serum Total Protein (6.0-8.3) g/dL Albumin (3.5-5.0) g/dL Globulin (2.4-3.5) g/dL Albumin/Globulin Ratio (1.1-2.2) Lipase (8-78) Units/L Urine Color Yellow (Yellow) Urine Clarity Cloudy A (Clear) Urine pH 6.5 (5.0-8.0) pH Units Ur Specific [place] 1.013 (1.010-1.025) Urine Protein Trace (Neg-Trace) mg/dL Urine Glucose (UA) 100 H (Normal) mg/dL Urine Ketones Trace H (Negative) mg/dL Urine Blood Moderate H (Negative) Urine Nitrite Positive A (Negative) Urine Bilirubin Negative (Negative) Urine Urobilinogen Normal (Normal) mg/dL Ur Leukocyte Esterase Large H (Negative) Urine Microscopic RBC 30-50 H (0-3) per hpf Urine Microscopic WBC 50-100 H (0-3) per hpf Ur Squamous Epith Cells Few (None-Few) per lpf Urine Bacteria Many H (None-Few) per hpf Hyaline Casts None Seen (None-Few) per lpf Ur Culture Indicated? YES A (NO) - Radiology Data Radiology results reviewed: Yes I reviewed the patient's radiology results. Abdomen/Pelvis CT 01/07/17 05:18 IMPRESSION: 1. Findings consistent with presence of left-sided obstructive uropathy. Optimum evaluation of the left distal ureter 4 radiopaque calculus is somewhat suboptimal due to presence of prominent calcific atherosclerotic plaque within adjacent internal iliac vessels. There is question of presence of 3 mm calculus within the left distal ureter in the pelvis. Follow-up ureteroscopy/ retrograde pyelogram may be helpful for more complete evaluation. 2. Findings consistent with presence of bilateral intrarenal calculi. On the right, 9 mm calculus is visualized in the region of the renal pelvis as described above. D/ / Lance Tristan MD / Lance Tristan MD Interpreting Provider: Lance Tristan MD - EKG Data EKG attestation: Yes I reviewed and interpreted this EKG. EKG results narrative: EKG reviewed by Dr. Linder as well. EKG shows a sinus rhythm with a possible right ventricular conduction delay at a rate of 75 bpm. PA interval 124, QRS duration 93, QT/QTC intervals 403/432. No ectopy noted. No STEMI. Attestation Statement - Attestation Attestation: I, Beni Linder MD, personally evaluated this patient and discussed their management with the midlevel provicer, PAC/RESEARCH ANTHROPOLOGIST. I reviewed the midlevel provider 's note and agree with the documented findings, medical decision making, and plan of care. 66-year-old female presents to the emergency department with a complaint of acute onset of left lower quadrant abdominal pain about 11 PM tonight. Some nausea and dry heaves and also some diaphoresis. No flank pain. Some dysuria. No gross hematuria. No prior history of kidney stones. On examination patient is a well-developed well-nourished well-appearing elderly female in no acute distress. She is alert and oriented 3. There is no cyanosis or diaphoresis. Rest sounds clear and equal bilaterally. Heart regular rate and rhythm. Abdomen is soft with normal bowel sounds. There is moderate left lower quadrant tenderness on direct palpation. Mild bilateral CVA tenderness which patient states is normal secondary to her previous back surgery and chronic back pain. Labs reviewed. Significant UTI noted. CT obtained and showed obstructive uropathy with a stone in the distal left ureter. The urologist nutrition instructor, Dr. Baltazar, was consulted and recommended admission by the hospitalist. The hospitalists will be consulted for admission.
[2017-01-07] MEDS ORDERED: Naloxone 0.4 MG/ML INJ IVP PRN ×2 (09:27→15:04)
[2017-01-07] MEDS ORDERED: Acetaminophen 325 MG TABLET PO PRN ×2 (09:27→15:04)
[2017-01-07] MEDS ORDERED: 0.9 % Sodium Chloride 1,000 ML IVC SCH (09:30)
--- NOTE | 2017-01-07 09:30 | Urology - Consult Note ---
Date of Encounter: 01/07/17 Time of Encounter: 09:28 - Assessment and Plan (1) UTI (urinary tract infection) Current Visit: Yes Status: Acute Assessment and plan: 66-year-old woman with a history of a urinary tract infection. She has been given antibiotic. We will continue the antibiotics. There is concern for obstruction. I recommend placing a left ureteral stent. She is willing to proceed. Qualifiers: Urinary tract infection type: acute cystitis Hematuria presence: with hematuria Qualified Code(s): N30.01 - Acute cystitis with hematuria (2) Ureteral calculus, left Current Visit: Yes Status: Acute Assessment and plan: 66-year-old woman with concern for left hydroureteronephrosis and a possible left ureteral stone. I am having difficulty visualizing the stone on her CT scan. Nevertheless, given the hydronephrosis and the urinary tract infection, I recommend a cystoscopy, left retrograde pyelogram, and left ureteral stent placement. The risks of the surgery were informed which include but are not limited to bleeding, infection, injury structures, need for further procedures, stent irritation, need for open repair, need for nephrostomy tube, and the risk of anesthesia. She is willing to proceed. After the stent is in place, we will monitor her for the infection. We will await for the results of culture to return. She will then need to proceed with definitive left ureteroscopy and possible stone extraction at a later date. We could also consider a right ureteroscopy to treat the right-sided stone. She is from [place]. She thinks she may seek follow-up with a local urologist. Urology CN:MAGDALENA Consult date: 01/07/17 Reason for consult Urology: Hydronephrosis History of present illness: 66-year-old woman presents with a history of left flank pain. The pain became very severe last night. She notes some nausea. It was sharp and radiated to the left groin. She has not had pain like this in the past. She does report a history of chronic active pain. She reports a history of esophageal cancer status post an esophagectomy. She had a CT scan which showed left hydroureteronephrosis down to the bladder. There was a possibility for a stone, but when I reviewed the CT I didn't see a calcification in the ureter. However, there was a large stone within the right kidney. Her urinalysis was concerning for infection. She is being admitted for IV antibiotic. Past Med Surg Social Fam HX - Past Medical History Medical history: cancer, hypertension Psychiatric history: anxiety, depression, PTSD - Social History Smoking Status: Former smoker Smokeless Tobacco Status: No Alcohol use: occasionally Drug use: none - Family History Father Living Status: Age at : 82 Cause of : cardiac arrest Hx Family Cardiac Disorders: Yes Hx Family Respiratory Disorders: Yes (black lung) Hx Family Cancer: Yes (brother lung cancer, sister breast, mother colon) Hx Family GI Disorders: Yes Hx Family Genitourinary Disorders: No Hx Family Endocrine Disorder: Yes Hx Family Musculoskeletal Disorders: No Hx Family Neuromuscular Disorders: No Hx Family Neurologic Disorders: No Hx Family Autoimmune Disorders: No Hx Family Reproductive Disorders: Yes Hx Family Psychosocial Disorders: Yes Hx Family Medical Disorders: No Medications and Allergies Albuterol Sulfate [Proair Hfa] 2 puff IH Q4-6H PRN 01/07/17 [History] Clopidogrel [Plavix] 75 mg PO DAILY 01/07/17 [History] Colesevelam HCl [Welchol] 625 mg PO DAILY 01/07/17 [History] Ferrous Sulfate [Iron] 325 mg PO DAILY 01/07/17 [History] Fluticasone Propionate Nasal [Flonase] 1 spr NS DAILY 01/07/17 [History] Nebivolol [Bystolic] 5 mg PO DAILY 01/07/17 [History] Nitroglycerin [Nitrostat] 0.4 mg SL Q5M PRN 01/07/17 [History] Pantoprazole Sodium [Protonix] 40 mg PO DAILY 01/07/17 [History] Ranitidine HCl [Zantac] 150 mg PO DAILY 01/07/17 [History] Sertraline [Zoloft] 200 mg PO DAILY 01/07/17 [History] Tiotropium [Spiriva] 18 mcg IH DAILY 01/07/17 [History] 3 Allergy/AdvReac Type Severity Reaction Status Date / Time naproxen AdvReac Nausea Verified 01/07/17 04:52 Review of Systems - Constitutional no chills, no fever(s) - EENT Nose, mouth and throat: no dizziness - Cardiovascular no chest pain - Respiratory no dyspnea - Gastrointestinal no vomiting - Genitourinary Genitourinary: flank pain, no hematuria - Musculoskeletal no back pain - Integumentary no erythema, no rash - Neurological no weakness - Psychiatric no suicidal ideation - Hematologic/Lymphatic no easy bleeding - Allergic/Immunologic no wheezing Exam Initial Vital Signs Temp Pulse Resp BP Pulse Ox 97.5 F L 74 22 180/90 100 01/07/17 04:52 01/07/17 04:52 01/07/17 04:52 01/07/17 04:52 01/07/17 04:52 - General physical appearance Present: well developed, well nourished, no distress - Eyes Absent: icteric - ENT Present: normal nares - Neck Present: trachea midline - Respiratory Present: normal respiratory effort - Cardiovascular Cardiovascular exam IM: RRR - Abdomen Abdomen: Present: soft Urology Results - Labs 01/07/17 05:05 01/07/17 05:05 Abnormal lab results RBC 3.29 M/mcL (3.82-4.97) L 01/07/17 05:05 Hgb 11.4 g/dL (11.5-15.4) L 01/07/17 05:05 Hct 32.4 % (35.3-44.9) L 01/07/17 05:05 MCH 34.7 pg (28.0-33.3) H 01/07/17 05:05 Plt Count 104 K/mcL (140-400) L 01/07/17 05:05 MPV 9.2 fL (9.4-12.4) L 01/07/17 05:05 Potassium 3.4 mEq/L (3.5-4.5) L 01/07/17 05:05 Glucose 204 mg/dL (70-99) H 01/07/17 05:05 POC Glucose 104 (58-89) H 01/07/17 08:39 Urine Clarity Cloudy (Clear) A 01/07/17 05:21 Urine Glucose (UA) 100 mg/dL (Normal) H 01/07/17 05:21 Urine Ketones Trace mg/dL (Negative) H 01/07/17 05:21 Urine Blood Moderate (Negative) H 01/07/17 05:21 Urine Nitrite Positive (Negative) A 01/07/17 05:21 Ur Leukocyte Esterase Large (Negative) H 01/07/17 05:21 Urine Microscopic RBC 30-50 per hpf (0-3) H 01/07/17 05:21 Urine Microscopic WBC 50-100 per hpf (0-3) H 01/07/17 05:21 Urine Bacteria Many per hpf (None-Few) H 01/07/17 05:21 Ur Culture Indicated? YES (NO) A 01/07/17 05:21 All other labs normal. - Imaging CT scan - abdomen: report reviewed, image reviewed CT scan - pelvis: report reviewed, image reviewed Consult Discharge Plan - Plan Referrals: NONE,PCP [Primary Care Provider] -
--- NOTE | 2017-01-07 10:01 | Internal Med History&Physical ---
Date of Encounter: 01/07/17 Time of Encounter: 08:00 Assessment and Plan (1) UTI (urinary tract infection) Current visit: Yes Status: Acute Continue Rocephin IV. Follow-up urine culture. Urology will placed stent for the ureter obstruction Qualifiers: Urinary tract infection type: acute cystitis Hematuria presence: with hematuria Qualified Code(s): N30.01 - Acute cystitis with hematuria (2) Acute unilateral obstructive uropathy Current visit: Yes Status: Acute Urology consult saw patient. Plan for cystoscope and stent. Continue pain management and hydration. (3) CAD (coronary artery disease) Current visit: Yes Status: Acute Patient has history of CAD S/P CABG. Denies chest pain or shortness of breath. No ischemic change on EKG. We will continue home medication. Qualifiers: Coronary Disease-Associated Artery/Lesion type: bypass graft [place] vs. transplanted heart: [place] heart Associated angina: without angina Qualified Code(s): I25.810 - Atherosclerosis of coronary artery bypass graft(s) without angina pectoris (4) Asthma Current visit: Yes Status: Acute No wheezing. Continue home medication. Qualifiers: Asthma severity: mild intermittent Asthma complication type: uncomplicated Qualified Code(s): J45.20 - Mild intermittent asthma, uncomplicated (5) DVT prophylaxis Current visit: Yes Status: Acute EPCD now. May start anticoagulations after surgery. (6) Ureteral calculus, left Current visit: Yes Status: Acute Urology consult on case. Will follow recommendation. Internal Medicine - H&P: HPI Chief complaint: Left flank pain Admitted From: Home Plans for Post Hospital Care: Home History of present illness: Ms. Dobbins is a 66 year old female present to ER for left flank pain started 6 PM yesterday. Patient said that the pain is a sharp 9 out of 10, radiated to left groin area. Patient denies fever. She has chills and nausea. Patient has symptoms of urinary tract infection, include burning and dysuria. Patient was found UTI and left-sided ureter obstruction in the emergency room. She was treated with Rocephin and zofran, symptoms improved. Urology consult was called by ER doctor. Plan for cystoscopy and stent today. I have discussed with patient regarding CODE STATUS. She said she does not want CPR if cardiac arrest happens. She does want intubation if necessary. DNR CCA has been placed. Past Med Surg Social Fam HX - Past Medical History Medical history: cancer, hypertension Psychiatric history: anxiety, depression, PTSD - Social History Smoking Status: Former smoker Smokeless Tobacco Status: No Alcohol use: occasionally Drug use: none - Family History Father Living Status: Age at : 82 Cause of : cardiac arrest Hx Family Cardiac Disorders: Yes Hx Family Respiratory Disorders: Yes (black lung) Hx Family Cancer: Yes (brother lung cancer, sister breast, mother colon) Hx Family GI Disorders: Yes Hx Family Genitourinary Disorders: No Hx Family Endocrine Disorder: Yes Hx Family Musculoskeletal Disorders: No Hx Family Neuromuscular Disorders: No Hx Family Neurologic Disorders: No Hx Family Autoimmune Disorders: No Hx Family Reproductive Disorders: Yes Hx Family Psychosocial Disorders: Yes Hx Family Medical Disorders: No Internal Medicine - H&P: Meds Albuterol Sulfate [Proair Hfa] 2 puff IH Q4-6H PRN 01/07/17 [History] Clopidogrel [Plavix] 75 mg PO DAILY 01/07/17 [History] Colesevelam HCl [Welchol] 625 mg PO DAILY 01/07/17 [History] Ferrous Sulfate [Iron] 325 mg PO DAILY 01/07/17 [History] Fluticasone Propionate Nasal [Flonase] 1 spr NS DAILY 01/07/17 [History] Nebivolol [Bystolic] 5 mg PO DAILY 01/07/17 [History] Nitroglycerin [Nitrostat] 0.4 mg SL Q5M PRN 01/07/17 [History] Pantoprazole Sodium [Protonix] 40 mg PO DAILY 01/07/17 [History] Ranitidine HCl [Zantac] 150 mg PO DAILY 01/07/17 [History] Sertraline [Zoloft] 200 mg PO DAILY 01/07/17 [History] Tiotropium [Spiriva] 18 mcg IH DAILY 01/07/17 [History] 3 Allergy/AdvReac Type Severity Reaction Status Date / Time naproxen AdvReac Nausea Verified 01/07/17 04:52 All Systems PM: A 10-system review of systems was performed and is negative for pertinent findings except as documented above in the HPI. - Constitutional Vitals: Temp Pulse Resp BP Pulse Ox 98.3 F 75 16 124/68 96 01/07/17 08:31 01/07/17 08:31 01/07/17 08:31 01/07/17 08:31 01/07/17 08:31 General appearance: Present: A&O X 3, no acute distress, answers questions appropriately - Head Head exam: Present: atraumatic, normocephalic - Eye Eye exam: Present: PERRL, conjuntiva pink, sclera anicteric Pupils: Present: PERRL - Neck Neck exam general surgery: Present: supple, trachea midline. Absent: lymphadenopathy - Respiratory Respiratory exam: Present: CTAB. Absent: accessory muscle use, rales, rhonchi, wheezes - Cardiovascular Cardiovascular exam: Present: RRR, +S1, +S2. Absent: diastolic murmur, gallop, rubs, systolic murmur - GI/Abdominal GI/Abdominal exam: Present: normal bowel sounds, soft, tenderness (Left abdominal tenderness without guarding or rebound), no peritoneal signs. Absent : distended - Extremities Exam Extremities exam: Present: warm, radial pulses palpable and symmetrical. Absent : calf tenderness, cyanotic, pedal edema - Neurological Exam Neurological exam: Present: CN II-XII intact, oriented X3, no focal deficits. Absent: pronater drift, facial droop, speech deficit - Skin Skin exam: Present: dry, intact Internal Med - H&P Results - Labs CBC & Chem 7: 01/07/17 05:05 01/07/17 05:05 - EKG Data -: EKG Interpreted by Myself EKG shows normal: sinus rhythm Rate: normal
[2017-01-07] MEDS ORDERED: Ondansetron 4 MG/2 ML VIAL IVP PRN ×3 (10:06→15:04)
[2017-01-07 10:09] LABS: INR 1.3; Prothrombin Time 13.8 Seconds (9.4-12.1)
[2017-01-07] MEDS: *HR* Morphine 2 MG/ML SYRINGE IVP PRN ×3 (10:22→20:57)
--- NOTE | 2017-01-07 12:24 | Anesthesia Evaluation PreOp ---
Date of Encounter: 01/07/17 Time of Encounter: 12:20 - Past History Planned Operation: Left Ureteral Stent Cardiac History: HTN, Cardiac Surgery (CABG X2 2011) Pulmonary History: Asthma BOX LOADER History: Denies Any Significant HX Other Medical History: Denies Any Significant HX Anesthesia History: No Prior Anesthetic Complications : No Alcohol Use: occasionally Drug use: none Medications and Allergies Albuterol Sulfate [Proair Hfa] 2 puff IH Q4-6H PRN 01/07/17 [History] Clopidogrel [Plavix] 75 mg PO DAILY 01/07/17 [History] Colesevelam HCl [Welchol] 625 mg PO DAILY 01/07/17 [History] Ferrous Sulfate [Iron] 325 mg PO DAILY 01/07/17 [History] Fluticasone Propionate Nasal [Flonase] 1 spr NS DAILY 01/07/17 [History] Nebivolol [Bystolic] 5 mg PO DAILY 01/07/17 [History] Nitroglycerin [Nitrostat] 0.4 mg SL Q5M PRN 01/07/17 [History] Pantoprazole Sodium [Protonix] 40 mg PO DAILY 01/07/17 [History] Ranitidine HCl [Zantac] 150 mg PO DAILY 01/07/17 [History] Sertraline [Zoloft] 200 mg PO DAILY 01/07/17 [History] Tiotropium [Spiriva] 18 mcg IH DAILY 01/07/17 [History] 3 Allergy/AdvReac Type Severity Reaction Status Date / Time naproxen AdvReac Nausea Verified 01/07/17 04:52 - Meds/Allergy Pre-op Review Medications Reviewed: Yes Allergies Reviewed: Yes Beta Blockers on Current Med List: Yes (Took Bystolic this AM) Anesthesia Results - Labs 01/07/17 05:05 01/07/17 05:05 - Imaging EKG: report reviewed (SR) Anesthesia Exam O2 Sat Height 1.73 m Height 1.73 m Weight 65 kg Weight 143 kg O2 Sat by Pulse Oximetry 96 O2 Sat by Pulse Oximetry 96 O2 Sat by Pulse Oximetry 100 O2 Sat by Pulse Oximetry 94 O2 Sat by Pulse Oximetry 100 O2 Sat by Pulse Oximetry 100 Vital Signs Temp Pulse Resp BP Pulse Ox 97.5 F L 74 22 180/90 100 01/07/17 04:52 01/07/17 04:52 01/07/17 04:52 01/07/17 04:52 01/07/17 04:52 Height: 5'8 Weight: 143 lbs NPO (# of Hours): MN Pain Scale: 0 - HEENT Pupil (Motor): Pupils equal, EOMI Mallampati: II Teeth: Normal Oral Opening: Greater than 3 - BOX LOADER LOC: Oriented BOX LOADER Motor: Normal RUE, Normal LUE, Normal RLE, Normal LLE, Normal Face BOX LOADER Sensory: Normal: RUE, LUE, RLE, LLE, Face - Cardiac Rhythm: Regular Murmur: None JVD: No Carotid Bruit: No - Pulmonary Breath Sounds: bilateral Clear Respiratory Effort: Symmetrical Anesthesia Assess/Plan ASA Score: 3 (CAD) Modified [place] Scale for Level of Consciousness: Cooperative, oriented, and tranquil Anesthetic Plan: General Monitoring Plan: Standard Monitors Recovery Plan: PACU (Discussed GA, agrees to proceed)
[2017-01-07] MEDS ORDERED: *HR* Propofol 200 MG/20 ML VIAL IVP ONE (12:31)
[2017-01-07] MEDS ORDERED: *HR* FentaNYL (PF) 100 MCG/2 ML VIAL ONE (12:31)
[2017-01-07] MEDS ORDERED: Lidocaine -MPF 2% 2 ML VIAL ONE (12:31)
[2017-01-07] MEDS ORDERED: *HR* Succinylcholine 200 MG/10 ML VIAL IVP ONE (12:39)
[2017-01-07] MEDS ORDERED: Ondansetron 4 MG/2 ML VIAL ONE (12:49)
[2017-01-07] MEDS ORDERED: Dexamethasone 4 MG/ML VIAL ONE (12:49)
[2017-01-07] MEDS ORDERED: *HR* HYDROmorphone (PF) 1 MG/ML SYRINGE IVP PRN (13:00)
--- NOTE | 2017-01-07 13:10 | Operative Note ---
Date of procedure: 01/07/17 Pre-op diagnosis: Left hydronephrosis Post-op diagnosis: same Procedure: Cystoscopy. Left retrograde pyelogram, left ureteral stent placement. Implants: 6 English x 26cm JJ stent. Complications: none. Anesthesia: NABIL Surgeon: Ramakrishna Baltazar Estimated blood loss (cc): 1 Specimen: left renal aspirate Condition: stable Disposition: PACU Procedure in Detail: Indications: Josette is a 66-year-old woman who has a history of left flank pain and left hydronephrosis. She has a urinary tract infection. She elected to undergo a cystoscopy and left ureteral stent placement. She was aware of the risks of the procedure including but not limited to bleeding, infection, injury to other structures, need for further procedures, stent irritation, need for nephrostomy tube, need for open repair, risks otherwise unforeseen, and the risk of anesthesia. She is willing to proceed. Procedure in Detail: After informed consent was obtained the patient was brought back to the operating room and placed in supine position. A time out was performed. General anesthesia was administered and an endotracheal tube was placed. She was then placed in the lithotomy position. She was prepped and draped in the usual sterile fashion. Cystoscopy was performed. The anterior urethra was normal. There was no evidence of bladder tumors. The ureteral orifices were in the normal orthotopic position. There was no duplication of the ureteral orifices. The Zip wire was placed in the left ureteral orifice. The open-ended catheter was placed over the wire into the distal ureter. A retrograde pyelogram was performed. There was no defect seen. There was no residual hydronephrosis. The wire was then brought up into the kidney under fluoroscopic guidance. A 6 English by 24cm JJ stent was then placed. The dangle strings were removed. The patient was then awakened from general anesthesia and brought to recovery room in good condition. All sponge, needle, and instrument counts were correct.
--- NOTE | 2017-01-07 17:14 | Electrocardiograph Report ---
[place] [id number] Test Date: 2017-01-07 Pat Name: Josette Dobbins Department: 102 Room: 3A55 Gender: Belt Picker: Justin : [phone] Requested By: Bianca Boyle Order Number: [id number] Reading MD: Diana Mazariegos Measurements Intervals [place] Rate: 75 P: 73 PA: 124 QRS: 65 QRSD: 93 T: 69 QT: 403 QTc: 432 Interpretive Statements SINUS RHYTHM POSSIBLE RIGHT VENTRICULAR CONDUCTION DELAY [RSR (QR) IN V1/V2] MODERATE ST DEPRESSION Electronically Signed On 01-07-2017 17:13:17 EDT by Diana Mazariegos
[2017-01-08] MEDS: 0.9 % Sodium Chloride 1,000 ML IVC SCH ×3 (00:35→19:38)
[2017-01-08 06:23] LABS: Basophils % 0.2 %; Eosinophils % 0.2 %; Hematocrit 26.1 % (35.3-44.9); Immature Granulocytes % 1.2 % (0-4); Immature Platelets 2.5 % (1.1-6.1); Lymphocytes # 1.1 K/mcL (0.6-4.6); Lymphocytes % 16.6 %; Mean Corpuscular HGB Conc 34.1 g/dL (31.6-35.5); Mean Corpuscular Hemoglobin 34.5 pg (28.0-33.3); Mean Corpuscular Volume 101.2 fL (83.0-100.0); Mean Platelet Volume 9.9 fL (9.4-12.4); Monocytes # 0.5 K/mcL (0.0-1.3); Monocytes % 7.8 %; Red Blood Count 2.58 M/mcL (3.82-4.97); Red Cell Distribution Width 14.2 % (11.5-14.5)
[2017-01-08 06:26] LABS: Hemoglobin 8.9 g/dL (11.5-15.4); Neutrophils # 4.7 K/mcL (1.6-8.9); Platelet Count 93 K/mcL (140-400)
[2017-01-08 06:36] LABS: BUN/Creatinine Ratio 11 (6-26); Blood Urea Nitrogen 8 mg/dL (7-20); Calcium 8.6 mg/dL (8.6-10.8); Carbon Dioxide 28 mEq/L (19-29); Chloride 109 mEq/L (98-109); Glucose 103 mg/dL (70-99); Osmolality,Calculated 295 (280-300); Potassium 3.5 mEq/L (3.5-4.5); Sodium 143 mEq/L (136-145); eGFR For African Americans > 60 (> 60); eGFR For Non-African Americans > 60 (> 60)
--- NOTE | 2017-01-08 07:28 | Urology Progress Note ---
Date of Encounter: 01/08/17 Time of Encounter: 07:26 - Assessment and Plan (1) UTI (urinary tract infection) Current Visit: Yes Status: Acute Assessment and plan: Continue IV antibiotics. Await results of urine culture. Appreciate internal medicine support. Qualifiers: Urinary tract infection type: acute cystitis Hematuria presence: with hematuria Qualified Code(s): N30.01 - Acute cystitis with hematuria (2) Ureteral calculus, left Current Visit: Yes Status: Acute Assessment and plan: Left ureteral stent was placed. She is doing well today. We can remove her Johnson catheter. Progress Note Narrative: 66-year-old woman with left hydroureteronephrosis is status post a left ureteral stent placement. She had a low-grade temperature yesterday. Urine culture is growing out gram-negative rods. Her urine was somewhat bloody, but it is clearing now. She feels well this morning. Objective Initial Vital Signs Temp Pulse Resp BP Pulse Ox 97.5 F L 74 22 180/90 100 01/07/17 04:52 01/07/17 04:52 01/07/17 04:52 01/07/17 04:52 01/07/17 04:52 - General physical appearance Present: well developed, well nourished, no distress - Respiratory Present: normal respiratory effort - Abdomen Present: soft - Genitourinary Present: normal external genitalia Urine Appearance: Present: Hematuria (light pink in johnson.) - Labs 01/08/17 05:40 01/08/17 05:40 Diabetes panel 01/08/17 Range/Units 05:40 Sodium 143 (136-145) mEq/L Potassium 3.5 (3.5-4.5) mEq/L Chloride 109 (98-109) mEq/L Carbon Dioxide 28 (19-29) mEq/L BUN 8 (7-20) mg/dL Creatinine 0.73 (0.57-1.11) mg/dL Glucose 103 H (70-99) mg/dL Calcium 8.6 (8.6-10.8) mg/dL Calcium panel 01/08/17 Range/Units 05:40 Calcium 8.6 (8.6-10.8) mg/dL Pituitary panel 01/08/17 Range/Units 05:40 Sodium 143 (136-145) mEq/L Potassium 3.5 (3.5-4.5) mEq/L Chloride 109 (98-109) mEq/L Carbon Dioxide 28 (19-29) mEq/L BUN 8 (7-20) mg/dL Creatinine 0.73 (0.57-1.11) mg/dL Glucose 103 H (70-99) mg/dL Calcium 8.6 (8.6-10.8) mg/dL Adrenal panel 01/08/17 Range/Units 05:40 Sodium 143 (136-145) mEq/L Potassium 3.5 (3.5-4.5) mEq/L Chloride 109 (98-109) mEq/L Carbon Dioxide 28 (19-29) mEq/L BUN 8 (7-20) mg/dL Creatinine 0.73 (0.57-1.11) mg/dL Glucose 103 H (70-99) mg/dL Calcium 8.6 (8.6-10.8) mg/dL Consult Discharge Plan - Plan Referrals: NONE,PCP [Primary Care Provider] -
[2017-01-08] MEDS: Tiotropium 18 MCG inhalation IH SCH (07:51)
[2017-01-08] MEDS ORDERED: Tiotropium 18 MCG inhalation IH SCH (09:00)
[2017-01-08] MEDS ORDERED: Famotidine 20 MG TABLET PO SCH (09:00)
[2017-01-08] MEDS: Famotidine 20 MG TABLET PO SCH (09:46)
[2017-01-08] MEDS: *HR* Morphine 2 MG/ML SYRINGE IVP PRN ×2 (09:47→18:40)
--- NOTE | 2017-01-08 11:22 | Internal Med Progress Note ---
Date of Encounter: 01/08/17 Time of Encounter: 11:20 - Assessment and plan (1) UTI (urinary tract infection) Current Visit: Yes Status: Acute Assessment and plan: Urine culture prelim positive for Gram negative Ab, will follow up repeat Urine culture continue IV ceftriaxone at this time will alter therapy as per urine culture results Qualifiers: Urinary tract infection type: acute cystitis Hematuria presence: with hematuria Qualified Code(s): N30.01 - Acute cystitis with hematuria (2) Ureteral calculus, left Current Visit: Yes Status: Acute Assessment and plan: s/p left ureteral stent placement (01/07/17) urology input appreciated pain control (3) CAD (coronary artery disease) Current Visit: Yes Status: Chronic Assessment and plan: restart home dose of Plavix holding BB due to BP readings Qualifiers: Coronary Disease-Associated Artery/Lesion type: bypass graft [place] vs. transplanted heart: [place] heart Associated angina: without angina Qualified Code(s): I25.810 - Atherosclerosis of coronary artery bypass graft(s) without angina pectoris (4) Asthma Current Visit: Yes Status: Chronic Assessment and plan: continue home medications no signs of acute exacerbation at this time Qualifiers: Asthma severity: mild intermittent Asthma complication type: uncomplicated Qualified Code(s): J45.20 - Mild intermittent asthma, uncomplicated (5) DVT prophylaxis Current Visit: Yes Status: Acute Assessment and plan: Heparin sQ (6) Anemia Current Visit: Yes Status: Acute Assessment and plan: History of iron deficiency anemia will continue home dose of ferrous sulfate drop in H&H noted no acute bleeding reported at this time will closely monitor and transfuse as needed Qualifiers: Anemia type: iron deficiency Iron deficiency anemia type: unspecified iron deficiency Qualified Code(s): D50.9 - Iron deficiency anemia, unspecified - Subjective Interval history: Patient seen and examined with family present at bedside. Pt resting in bed and reports of feeling better compared to previous day. S/P left ureteral stent placement (POD #1-DOS: 01/07/17). Pain appropriately controlled with current pain medications. No overnight issues reported. - Constitutional Vitals: Temp Pulse Resp BP Pulse Ox 98.0 F 72 16 108/63 94 01/08/17 10:54 01/08/17 10:54 01/08/17 10:54 01/08/17 10:54 01/08/17 10:54 General appearance: Present: cooperative, A&O X 3, pleasant, no acute distress, answers questions appropriately - Head Head exam: Present: atraumatic, normocephalic - Eye Eye exam: Present: conjuntiva pink, sclera anicteric - Respiratory Respiratory exam: Present: CTAB. Absent: respiratory distress, wheezes - Cardiovascular Cardiovascular exam: Present: RRR, +S1, +S2. Absent: diastolic murmur, gallop, rubs, systolic murmur - GI/Abdominal GI/Abdominal exam: Present: normal bowel sounds, soft, no peritoneal signs. Absent: distended, tenderness - Extremities Exam Extremities exam: Present: warm, radial pulses palpable and symmetrical. Absent : calf tenderness, cyanotic, pedal edema - Back Exam Back exam: Present: CVA tenderness (L) - Neurological Exam Neurological exam: Present: oriented X3 - Psychiatric Psychiatric exam: Present: normal affect, normal mood Internal Medicine: Result - Labs CBC & Chem 7: 01/08/17 05:40 01/08/17 05:40 Labs: Short CBC 01/08/17 Range/Units 05:40 WBC 6.4 (4.3-11.1) K/mcL Hgb 8.9 L D (11.5-15.4) g/dL Hct 26.1 L (35.3-44.9) % Plt Count 93 L (140-400) K/mcL Neutrophils # 4.7 (1.6-8.9) K/mcL BMP 01/08/17 05:40 Sodium 143 Potassium 3.5 Chloride 109 Carbon Dioxide 28 BUN 8 Creatinine 0.73 Glucose 103 H Calcium 8.6 - ABG Interpretation ABG results: PT/INR, D-dimer PT 13.8 Seconds (9.4-12.1) H 01/07/17 09:56 - Impressions Impressions Retrograde Pyelogram 01/07/17 12:44 IMPRESSION: Intraprocedural fluoroscopic spot images as above. See separate procedure report for more information. D/ / Gian Turcios MD / Gian Turcios MD Interpreting Provider: Gian Turcios MD Consult Discharge Plan - Plan Referrals: NONE,PCP [Primary Care Provider] -
--- NOTE | 2017-01-08 12:15 | Anesthesia Evaluation Post Op ---
Date of Encounter: 01/08/17
[2017-01-08] MEDS: *HR* Heparin 5,000 UNIT/ML VIAL SQ SCH (18:38)
[2017-01-09] MEDS: 0.9 % Sodium Chloride 1,000 ML IVC SCH ×2 (02:18→16:33)
[2017-01-09] MEDS: *HR* Heparin 5,000 UNIT/ML VIAL SQ SCH ×2 (06:55→18:58)
[2017-01-09 07:45] LABS: Basophils % 0.3 %; Eosinophils % 0.8 %; Hematocrit 25.1 % (35.3-44.9); Hemoglobin 8.4 g/dL (11.5-15.4); Immature Granulocytes % 0.3 % (0-4); Lymphocytes # 0.9 K/mcL (0.6-4.6); Lymphocytes % 22.8 %; Mean Corpuscular HGB Conc 33.5 g/dL (31.6-35.5); Mean Corpuscular Hemoglobin 34.3 pg (28.0-33.3); Mean Corpuscular Volume 102.4 fL (83.0-100.0); Mean Platelet Volume 9.8 fL (9.4-12.4); Monocytes # 0.3 K/mcL (0.0-1.3); Monocytes % 7.9 %; Neutrophils # 2.7 K/mcL (1.6-8.9); Red Blood Count 2.45 M/mcL (3.82-4.97); Red Cell Distribution Width 14.2 % (11.5-14.5); Segmented Neutrophils % 67.9 %
[2017-01-09 07:46] LABS: Platelet Count 78 K/mcL (140-400)
[2017-01-09 07:48] LABS: BUN/Creatinine Ratio 8 (6-26); Blood Urea Nitrogen 5 mg/dL (7-20); Calcium 8.4 mg/dL (8.6-10.8); Carbon Dioxide 29 mEq/L (19-29); Chloride 110 mEq/L (98-109); Glucose 95 mg/dL (70-99); Magnesium 1.7 mg/dL (1.6-2.6); Osmolality,Calculated 295 (280-300); Phosphorous 3.6 mg/dL (2.3-4.7); Potassium 3.3 mEq/L (3.5-4.5); Sodium 144 mEq/L (136-145); eGFR For African Americans > 60 (> 60); eGFR For Non-African Americans > 60 (> 60)
[2017-01-09] MEDS: Tiotropium 18 MCG inhalation IH SCH (07:55)
[2017-01-09] MEDS: Famotidine 20 MG TABLET PO SCH (08:02)
[2017-01-09] MEDS: Fluticasone Propionate Nasal 50 MCG/SPRAY BOTTLE NS SCH (08:03)
--- NOTE | 2017-01-09 09:24 | Internal Med Progress Note ---
Date of Encounter: 01/09/17 Time of Encounter: 09:21 - Assessment and plan (1) UTI (urinary tract infection) Current Visit: Yes Status: Acute Assessment and plan: Urine culture: Klebsiella Pneu. ssp pneumoniae given persistent fevers despite being on IV ceftriaxone, will d/c IV ceftriaxone and start Zosyn at this time. Qualifiers: Urinary tract infection type: acute cystitis Hematuria presence: with hematuria Qualified Code(s): N30.01 - Acute cystitis with hematuria (2) Ureteral calculus, left Current Visit: Yes Status: Acute Assessment and plan: s/p left ureteral stent placement (01/07/17) urology input appreciated pain control pt will follow up with urology as outpatient for stent removal (3) CAD (coronary artery disease) Current Visit: Yes Status: Chronic Assessment and plan: continue home meds Plavix, BB no signs of angina present at this time Qualifiers: Coronary Disease-Associated Artery/Lesion type: bypass graft [place] vs. transplanted heart: [place] heart Associated angina: without angina Qualified Code(s): I25.810 - Atherosclerosis of coronary artery bypass graft(s) without angina pectoris (4) Asthma Current Visit: Yes Status: Chronic Assessment and plan: continue home medications no signs of acute exacerbation at this time Qualifiers: Asthma severity: mild intermittent Asthma complication type: uncomplicated Qualified Code(s): J45.20 - Mild intermittent asthma, uncomplicated (5) DVT prophylaxis Current Visit: Yes Status: Acute Assessment and plan: Heparin sQ (6) Anemia Current Visit: Yes Status: Acute Assessment and plan: History of iron deficiency anemia will continue home dose of ferrous sulfate H&H low but acceptable no acute bleeding reported at this time will closely monitor and transfuse as needed Qualifiers: Anemia type: iron deficiency Iron deficiency anemia type: unspecified iron deficiency Qualified Code(s): D50.9 - Iron deficiency anemia, unspecified (7) Electrolyte abnormality Current Visit: Yes Status: Acute Assessment and plan: hypokalemia K supplemented continue to monitor electrolytes and replace as needed - Subjective Interval history: Patient seen and examined at bedside. Reports of feeling tired and noted to be febrile overnight with Tmax of 101.1. Reports of lower abd discomfort but denies any nausea, vomiting, fever or chills at this time. Given fever overnight, will change abx to zosyn for broader coverage. Will monitor another day, if remains clinically asymptomatic, likely d/c in am with PO abx. S/P left ureteral stent placement (POD #2-DOS: 01/07/17) - Constitutional Vitals: Temp Pulse Resp BP Pulse Ox 97.9 F 67 16 132/66 95 01/09/17 07:02 01/09/17 07:02 01/09/17 07:56 01/09/17 07:02 01/09/17 08:00 General appearance: Present: cooperative, A&O X 3 (Fatigued), pleasant, no acute distress, answers questions appropriately - Head Head exam: Present: atraumatic, normocephalic - Eye Eye exam: Present: conjuntiva pink, sclera anicteric - Respiratory Respiratory exam: Present: CTAB. Absent: accessory muscle use, rales, rhonchi, wheezes - Cardiovascular Cardiovascular exam: Present: RRR, +S1, +S2 - GI/Abdominal GI/Abdominal exam: Present: normal bowel sounds, soft, no peritoneal signs. Absent: distended, tenderness - Extremities Exam Extremities exam: Present: warm, radial pulses palpable and symmetrical. Absent : calf tenderness - Neurological Exam Neurological exam: Present: alert, oriented X3 - Psychiatric Psychiatric exam: Present: normal affect, normal mood Internal Medicine: Result - Labs CBC & Chem 7: 01/09/17 06:59 01/09/17 06:59 Labs: Short CBC 01/09/17 Range/Units 06:59 WBC 3.9 L (4.3-11.1) K/mcL Hgb 8.4 L (11.5-15.4) g/dL Hct 25.1 L (35.3-44.9) % Plt Count 78 L (140-400) K/mcL Neutrophils # 2.7 (1.6-8.9) K/mcL BMP 01/09/17 06:59 Sodium 144 Potassium 3.3 L Chloride 110 H Carbon Dioxide 29 BUN 5 L Creatinine 0.65 Glucose 95 Calcium 8.4 L - ABG Interpretation ABG results: PT/INR, D-dimer PT 13.8 Seconds (9.4-12.1) H 01/07/17 09:56 - VTE Documentation of Mechanical Device: Intermittent pneumatic compression device Consult Discharge Plan - Plan Referrals: NONE,PCP [Primary Care Provider] -
--- NOTE | 2017-01-09 09:31 | Urology Progress Note ---
Date of Encounter: 01/09/17 Time of Encounter: 09:29 - Assessment and Plan (1) UTI (urinary tract infection) Current Visit: Yes Status: Acute Assessment and plan: Klebsiella grew out. Discussed with Dr. Leonardo. Will change antibiotic to zosyn. Await resolution of fevers. Qualifiers: Qualified Code(s): N30.01 - Acute cystitis with hematuria (2) Ureteral calculus, left Current Visit: Yes Status: Acute Assessment and plan: Stent placed. Once infection clears, will consider bilateral ureteroscopy for her stones. Progress Note Narrative: s/p left ureteral stent placement, POD #2. Still with some hematuria. Hemoglobin dropped slightly, but seems to be stabilizing. She had a fever overnight. Objective Initial Vital Signs Temp Pulse Resp BP Pulse Ox 97.5 F L 74 22 180/90 100 01/07/17 04:52 01/07/17 04:52 01/07/17 04:52 01/07/17 04:52 01/07/17 04:52 - General physical appearance Present: well developed, well nourished, no distress - Respiratory Present: normal respiratory effort - Abdomen Present: soft - Labs 01/09/17 06:59 01/09/17 06:59 Diabetes panel 01/09/17 Range/Units 06:59 Sodium 144 (136-145) mEq/L Potassium 3.3 L (3.5-4.5) mEq/L Chloride 110 H (98-109) mEq/L Carbon Dioxide 29 (19-29) mEq/L BUN 5 L (7-20) mg/dL Creatinine 0.65 (0.57-1.11) mg/dL Glucose 95 (70-99) mg/dL Calcium 8.4 L (8.6-10.8) mg/dL Calcium panel 01/09/17 Range/Units 06:59 Calcium 8.4 L (8.6-10.8) mg/dL Phosphorus 3.6 (2.3-4.7) mg/dL Pituitary panel 01/09/17 Range/Units 06:59 Sodium 144 (136-145) mEq/L Potassium 3.3 L (3.5-4.5) mEq/L Chloride 110 H (98-109) mEq/L Carbon Dioxide 29 (19-29) mEq/L BUN 5 L (7-20) mg/dL Creatinine 0.65 (0.57-1.11) mg/dL Glucose 95 (70-99) mg/dL Calcium 8.4 L (8.6-10.8) mg/dL Adrenal panel 01/09/17 Range/Units 06:59 Sodium 144 (136-145) mEq/L Potassium 3.3 L (3.5-4.5) mEq/L Chloride 110 H (98-109) mEq/L Carbon Dioxide 29 (19-29) mEq/L BUN 5 L (7-20) mg/dL Creatinine 0.65 (0.57-1.11) mg/dL Glucose 95 (70-99) mg/dL Calcium 8.4 L (8.6-10.8) mg/dL - VTE Documentation of Mechanical Device: Intermittent pneumatic compression device Consult Discharge Plan - Plan Referrals: NONE,PCP [Primary Care Provider] -
[2017-01-09] MEDS: *HR* Morphine 2 MG/ML SYRINGE IVP PRN ×2 (12:55→21:06)
[2017-01-09] MEDS: Piperacillin/Tazobactam 3.375 GM in D5% in Water (Mini-Bag+) 100 ML IVPB SCH ×2 (12:55→16:32)
[2017-01-10] MEDS: Piperacillin/Tazobactam 3.375 GM in D5% in Water (Mini-Bag+) 100 ML IVPB SCH ×3 (00:28→18:35)
[2017-01-10] MEDS: 0.9 % Sodium Chloride 1,000 ML IVC SCH (03:20)
[2017-01-10 05:00] LABS: Basophils % 0.3 %; Hemoglobin 7.6 g/dL (11.5-15.4); Immature Granulocytes % 0.3 % (0-4); Mean Corpuscular Volume 101.8 fL (83.0-100.0)
[2017-01-10 05:01] LABS: Eosinophils # 0.1 K/mcL (0.0-0.6); Eosinophils % 1.4 %; Hematocrit 22.3 % (35.3-44.9); Immature Platelets 2.8 % (1.1-6.1); Lymphocytes % 28.2 %; Mean Corpuscular HGB Conc 34.1 g/dL (31.6-35.5); Mean Corpuscular Hemoglobin 34.7 pg (28.0-33.3); Mean Platelet Volume 9.5 fL (9.4-12.4); Monocytes # 0.4 K/mcL (0.0-1.3); Monocytes % 10.1 %; Neutrophils # 2.1 K/mcL (1.6-8.9); Red Blood Count 2.19 M/mcL (3.82-4.97); Red Cell Distribution Width 14.2 % (11.5-14.5); Segmented Neutrophils % 59.7 %
[2017-01-10 05:03] LABS: Platelet Count 81 K/mcL (140-400)
[2017-01-10 05:15] LABS: BUN/Creatinine Ratio 6 (6-26); Blood Urea Nitrogen 4 mg/dL (7-20); Calcium 8.3 mg/dL (8.6-10.8); Carbon Dioxide 27 mEq/L (19-29); Chloride 111 mEq/L (98-109); Glucose 94 mg/dL (70-99); Magnesium 1.7 mg/dL (1.6-2.6); Osmolality,Calculated 293 (280-300); Phosphorous 3.2 mg/dL (2.3-4.7); Potassium 3.4 mEq/L (3.5-4.5); Sodium 143 mEq/L (136-145); eGFR For African Americans > 60 (> 60); eGFR For Non-African Americans > 60 (> 60)
[2017-01-10] MEDS: *HR* Heparin 5,000 UNIT/ML VIAL SQ SCH ×2 (05:40→19:00)
[2017-01-10 05:46] LABS: Platelet Estimate Decreased (Normal)
--- NOTE | 2017-01-10 07:48 | Urology Progress Note ---
Date of Encounter: 01/10/17 Time of Encounter: 07:46 - Assessment and Plan (1) UTI (urinary tract infection) Current Visit: Yes Status: Acute Assessment and plan: Fever curve seems to be improving. She didn't have any fevers overnight. However she has some lowering of her hemoglobin and hematocrit. I will check a CT scan of the abdomen and pelvis today to confirm there is no evidence of perinephric hematoma, but I think that is unlikely. I think the bleeding may be more consistent with a hemorrhagic cystitis secondary to her urinary tract infection. I will discuss with the hospitalist team regarding a possible transfusion today. Qualifiers: Urinary tract infection type: acute cystitis Hematuria presence: with hematuria Qualified Code(s): N30.01 - Acute cystitis with hematuria (2) Ureteral calculus, left Current Visit: Yes Status: Acute Assessment and plan: Status post left ureteral stent. Creatinine is stable. (3) Anemia Current Visit: Yes Status: Acute Assessment and plan: Hemoglobin continues to drop. We will check imaging and consider a transfusion today. Qualifiers: Anemia type: iron deficiency Iron deficiency anemia type: unspecified iron deficiency Qualified Code(s): D50.9 - Iron deficiency anemia, unspecified Progress Note Narrative: s/p left ureteral stent placement, POD #3. Urine has an darren to brown color. Hemoglobin continues to drop. She feels weak. Objective Initial Vital Signs Temp Pulse Resp BP Pulse Ox 97.5 F L 74 22 180/90 100 01/07/17 04:52 01/07/17 04:52 01/07/17 04:52 01/07/17 04:52 01/07/17 04:52 - General physical appearance Present: well developed, well nourished, no distress - Respiratory Present: normal expansion - Abdomen Present: soft - Genitourinary Urine Appearance: Present: Hematuria (Darren to brown color.) - Labs 01/10/17 04:48 01/10/17 04:48 Diabetes panel 01/09/17 01/10/17 Range/Units 06:59 04:48 Sodium 144 143 (136-145) mEq/L Potassium 3.3 L 3.4 L (3.5-4.5) mEq/L Chloride 110 H 111 H (98-109) mEq/L Carbon Dioxide 29 27 (19-29) mEq/L BUN 5 L 4 L (7-20) mg/dL Creatinine 0.65 0.70 (0.57-1.11) mg/dL Glucose 95 94 (70-99) mg/dL Calcium 8.4 L 8.3 L (8.6-10.8) mg/dL Calcium panel 01/09/17 01/10/17 Range/Units 06:59 04:48 Calcium 8.4 L 8.3 L (8.6-10.8) mg/dL Phosphorus 3.6 3.2 (2.3-4.7) mg/dL Pituitary panel 01/09/17 01/10/17 Range/Units 06:59 04:48 Sodium 144 143 (136-145) mEq/L Potassium 3.3 L 3.4 L (3.5-4.5) mEq/L Chloride 110 H 111 H (98-109) mEq/L Carbon Dioxide 29 27 (19-29) mEq/L BUN 5 L 4 L (7-20) mg/dL Creatinine 0.65 0.70 (0.57-1.11) mg/dL Glucose 95 94 (70-99) mg/dL Calcium 8.4 L 8.3 L (8.6-10.8) mg/dL Adrenal panel 01/09/17 01/10/17 Range/Units 06:59 04:48 Sodium 144 143 (136-145) mEq/L Potassium 3.3 L 3.4 L (3.5-4.5) mEq/L Chloride 110 H 111 H (98-109) mEq/L Carbon Dioxide 29 27 (19-29) mEq/L BUN 5 L 4 L (7-20) mg/dL Creatinine 0.65 0.70 (0.57-1.11) mg/dL Glucose 95 94 (70-99) mg/dL Calcium 8.4 L 8.3 L (8.6-10.8) mg/dL - VTE Documentation of Mechanical Device: Intermittent pneumatic compression device Consult Discharge Plan - Plan Referrals: NONE,PCP [Primary Care Provider] -
[2017-01-10] MEDS: Tiotropium 18 MCG inhalation IH SCH (08:10)
--- NOTE | 2017-01-10 10:16 | Internal Med Progress Note ---
Date of Encounter: 01/10/17 Time of Encounter: 10:14 - Assessment and plan (1) UTI (urinary tract infection) Current Visit: Yes Status: Acute Assessment and plan: Urine culture: Klebsiella Pneu. ssp pneumoniae continue IV Zosyn at this time Qualifiers: Urinary tract infection type: acute cystitis Hematuria presence: with hematuria Qualified Code(s): N30.01 - Acute cystitis with hematuria (2) Ureteral calculus, left Current Visit: Yes Status: Acute Assessment and plan: s/p left ureteral stent placement (01/07/17) urology input appreciated pain control pt will follow up with urology as outpatient for stent removal Drop in H&H noted will transfuse 2unit PRBC will obtain CT abd/pelvis to rule out perinephric hematoma Phenergan 12.5mg IV q6h prn nausea/vomiting (3) CAD (coronary artery disease) Current Visit: Yes Status: Chronic Assessment and plan: continue home meds Plavix, BB no signs of angina present at this time Qualifiers: Coronary Disease-Associated Artery/Lesion type: bypass graft [place] vs. transplanted heart: [place] heart Associated angina: without angina Qualified Code(s): I25.810 - Atherosclerosis of coronary artery bypass graft(s) without angina pectoris (4) Asthma Current Visit: Yes Status: Chronic Assessment and plan: continue home medications no signs of acute exacerbation at this time Qualifiers: Asthma severity: mild intermittent Asthma complication type: uncomplicated Qualified Code(s): J45.20 - Mild intermittent asthma, uncomplicated (5) DVT prophylaxis Current Visit: Yes Status: Acute Assessment and plan: Heparin sQ (6) Anemia Current Visit: Yes Status: Acute Assessment and plan: History of iron deficiency anemia will continue home dose of ferrous sulfate Drop in H&H noted will transfuse 2unit PRBC will obtain CT abd/pelvis to rule out perinephric hematoma Qualifiers: Anemia type: iron deficiency Iron deficiency anemia type: unspecified iron deficiency Qualified Code(s): D50.9 - Iron deficiency anemia, unspecified (7) Electrolyte abnormality Current Visit: Yes Status: Acute Assessment and plan: hypokalemia K supplemented continue to monitor electrolytes and replace as needed - Subjective Interval history: Patient seen and examined at bedside. Noted to be weak and reports of lower abdominal pain and nausea. Was able to tolerate breakfast but current nauseous. Noted to have drop in H&H which could be contributing to her generalized weakness. Afebrile for over 24 hours. S/P left ureteral stent placement (POD #3-DOS: 01/07/17) - Constitutional Vitals: Temp Pulse Resp BP Pulse Ox 97.9 F 64 16 122/61 93 01/10/17 07:38 01/10/17 07:38 01/10/17 08:10 01/10/17 07:38 01/10/17 08:10 General appearance: Present: cooperative, A&O X 3 (Weak), pleasant, no acute distress, answers questions appropriately - Head Head exam: Present: atraumatic, normocephalic - Eye Eye exam: Present: conjuntiva pink, sclera anicteric - Respiratory Respiratory exam: Absent: respiratory distress, wheezes - Cardiovascular Cardiovascular exam: Present: RRR, +S1, +S2. Absent: diastolic murmur, gallop, rubs, systolic murmur - GI/Abdominal GI/Abdominal exam: Present: normal bowel sounds, soft, tenderness (lower abd tenderness to palpation ), no peritoneal signs. Absent: distended - Extremities Exam Extremities exam: Present: warm, radial pulses palpable and symmetrical. Absent : calf tenderness, cyanotic, pedal edema - Neurological Exam Neurological exam: Present: alert, oriented X3 - Psychiatric Psychiatric exam: Present: normal affect, normal mood Internal Medicine: Result - Labs CBC & Chem 7: 01/10/17 04:48 01/10/17 04:48 Labs: Short CBC 01/10/17 Range/Units 04:48 WBC 3.5 L (4.3-11.1) K/mcL Hgb 7.6 L (11.5-15.4) g/dL Hct 22.3 L (35.3-44.9) % Plt Count 81 L (140-400) K/mcL Neutrophils # 2.1 (1.6-8.9) K/mcL BMP 01/10/17 04:48 Sodium 143 Potassium 3.4 L Chloride 111 H Carbon Dioxide 27 BUN 4 L Creatinine 0.70 Glucose 94 Calcium 8.3 L - ABG Interpretation ABG results: PT/INR, D-dimer PT 13.8 Seconds (9.4-12.1) H 01/07/17 09:56 - VTE Documentation of Mechanical Device: Intermittent pneumatic compression device Consult Discharge Plan - Plan Referrals: NONE,PCP [Primary Care Provider] -
[2017-01-10] MEDS ORDERED: 0.9 % Sodium Chloride 250 ML ONE ×2 (11:05→18:40)
[2017-01-10] MEDS: Famotidine 20 MG TABLET PO SCH (11:20)
[2017-01-10] MEDS: *HR* Morphine 2 MG/ML SYRINGE IVP PRN ×2 (11:21→22:19)
[2017-01-10] MEDS: *HR* Promethazine 25 MG/ML VIAL IVP PRN ×2 (11:22→22:19)
[2017-01-10] MEDS: Fluticasone Propionate Nasal 50 MCG/SPRAY BOTTLE NS SCH (13:12)
[2017-01-11] MEDS: Piperacillin/Tazobactam 3.375 GM in D5% in Water (Mini-Bag+) 100 ML IVPB SCH ×2 (01:23→09:22)
[2017-01-11] MEDS: *HR* Heparin 5,000 UNIT/ML VIAL SQ SCH ×2 (05:17→16:25)
[2017-01-11] MEDS: *HR* Morphine 2 MG/ML SYRINGE IVP PRN ×4 (05:17→20:59)
[2017-01-11] MEDS: *HR* Promethazine 25 MG/ML VIAL IVP PRN ×2 (05:17→20:58)
[2017-01-11 06:24] LABS: Basophils % 0.2 %; Mean Platelet Volume 9.9 fL (9.4-12.4)
[2017-01-11 06:26] LABS: Eosinophils % 0.6 %; Hematocrit 30.3 % (35.3-44.9); Hemoglobin 10.6 g/dL (11.5-15.4); Immature Granulocytes % 0.2 % (0-4); Immature Platelets 3.9 % (1.1-6.1); Lymphocytes # 0.8 K/mcL (0.6-4.6); Lymphocytes % 16.5 %; Mean Corpuscular Hemoglobin 33.1 pg (28.0-33.3); Mean Corpuscular Volume 94.7 fL (83.0-100.0); Monocytes # 0.4 K/mcL (0.0-1.3); Monocytes % 7.6 %; Neutrophils # 3.5 K/mcL (1.6-8.9); Platelet Count 92 K/mcL (140-400); Segmented Neutrophils % 74.9 %
[2017-01-11 06:39] LABS: BUN/Creatinine Ratio 8 (6-26); Blood Urea Nitrogen 6 mg/dL (7-20); Calcium 8.7 mg/dL (8.6-10.8); Carbon Dioxide 26 mEq/L (19-29); Chloride 109 mEq/L (98-109); Glucose 101 mg/dL (70-99); Magnesium 1.5 mg/dL (1.6-2.6); Osmolality,Calculated 292 (280-300); Phosphorous 3.5 mg/dL (2.3-4.7); Potassium 3.3 mEq/L (3.5-4.5); Sodium 142 mEq/L (136-145); eGFR For African Americans > 60 (> 60); eGFR For Non-African Americans > 60 (> 60)
[2017-01-11] MEDS: Tiotropium 18 MCG inhalation IH SCH (07:23)
--- NOTE | 2017-01-11 07:25 | Urology Progress Note ---
Date of Encounter: 01/11/17 Time of Encounter: 07:23 - Assessment and Plan (1) UTI (urinary tract infection) Current Visit: Yes Status: Acute Assessment and plan: Klebsiella UTI. Continue antibiotics for a 2 week course. Qualifiers: Urinary tract infection type: acute cystitis Hematuria presence: with hematuria Qualified Code(s): N30.01 - Acute cystitis with hematuria (2) Ureteral calculus, left Current Visit: Yes Status: Acute Assessment and plan: We will need to perform definitive left ureteroscopy and right ureteroscopy for her stones at later date. (3) Anemia Current Visit: Yes Status: Acute Assessment and plan: I would recommend continued observation of her hemoglobin and hematocrit to confirm stability prior to discharge. Qualifiers: Anemia type: iron deficiency Iron deficiency anemia type: unspecified iron deficiency Qualified Code(s): D50.9 - Iron deficiency anemia, unspecified Progress Note Narrative: 66-year-old woman status post left ureteral stent placement. CT was reviewed from yesterday which shows no evidence of perinephric hematoma. She did receive 2 units of blood and had a normal hemoglobin response. No significant temperatures overnight. Objective Initial Vital Signs Temp Pulse Resp BP Pulse Ox 97.5 F L 74 22 180/90 100 01/07/17 04:52 01/07/17 04:52 01/07/17 04:52 01/07/17 04:52 01/07/17 04:52 - General physical appearance Present: well developed, well nourished, no distress - Respiratory Present: normal respiratory effort - Abdomen Present: soft - Labs 01/11/17 05:59 01/11/17 05:59 Diabetes panel 01/11/17 Range/Units 05:59 Sodium 142 (136-145) mEq/L Potassium 3.3 L (3.5-4.5) mEq/L Chloride 109 (98-109) mEq/L Carbon Dioxide 26 (19-29) mEq/L BUN 6 L (7-20) mg/dL Creatinine 0.72 (0.57-1.11) mg/dL Glucose 101 H (70-99) mg/dL Calcium 8.7 (8.6-10.8) mg/dL Calcium panel 01/11/17 Range/Units 05:59 Calcium 8.7 (8.6-10.8) mg/dL Phosphorus 3.5 (2.3-4.7) mg/dL Pituitary panel 01/11/17 Range/Units 05:59 Sodium 142 (136-145) mEq/L Potassium 3.3 L (3.5-4.5) mEq/L Chloride 109 (98-109) mEq/L Carbon Dioxide 26 (19-29) mEq/L BUN 6 L (7-20) mg/dL Creatinine 0.72 (0.57-1.11) mg/dL Glucose 101 H (70-99) mg/dL Calcium 8.7 (8.6-10.8) mg/dL Adrenal panel 01/11/17 Range/Units 05:59 Sodium 142 (136-145) mEq/L Potassium 3.3 L (3.5-4.5) mEq/L Chloride 109 (98-109) mEq/L Carbon Dioxide 26 (19-29) mEq/L BUN 6 L (7-20) mg/dL Creatinine 0.72 (0.57-1.11) mg/dL Glucose 101 H (70-99) mg/dL Calcium 8.7 (8.6-10.8) mg/dL - VTE Documentation of Mechanical Device: Intermittent pneumatic compression device Consult Discharge Plan - Plan Referrals: Ramakrishna Baltazar MD [Partnered Physician] -
[2017-01-11] MEDS: Fluticasone Propionate Nasal 50 MCG/SPRAY BOTTLE NS SCH (09:16)
[2017-01-11] MEDS: Famotidine 20 MG TABLET PO SCH (09:22)
[2017-01-11] MEDS: Ondansetron 4 MG/2 ML VIAL IVP PRN (10:07)
--- NOTE | 2017-01-11 14:54 | Internal Med Progress Note ---
Date of Encounter: 01/11/17 Time of Encounter: 14:52 - Assessment and plan (1) UTI (urinary tract infection) Current Visit: Yes Status: Acute Assessment and plan: Urine culture: Klebsiella Pneumonia improving No fever / normal WBC changed to PO ABx Levofloxacin does need total 2 weeks of abx Qualifiers: Urinary tract infection type: acute cystitis Hematuria presence: with hematuria Qualified Code(s): N30.01 - Acute cystitis with hematuria (2) Acute unilateral obstructive uropathy Current Visit: Yes Status: Acute Assessment and plan: improved s/p ureter stent (3) Ureteral calculus, left Current Visit: Yes Status: Acute Assessment and plan: s/p left ureteral stent placement (01/07/17) pain control pt will follow up with urology as outpatient for stent removal (4) CAD (coronary artery disease) Current Visit: Yes Status: Chronic Assessment and plan: continue home meds Plavix, BB no signs of angina present at this time Qualifiers: Coronary Disease-Associated Artery/Lesion type: bypass graft [place] vs. transplanted heart: [place] heart Associated angina: without angina Qualified Code(s): I25.810 - Atherosclerosis of coronary artery bypass graft(s) without angina pectoris (5) Anemia Current Visit: Yes Status: Acute Assessment and plan: Her current anemia could be due to IV hydration and UTI s/p 2 U PRBC - Hb @ 10.6 She does have chronic iron deficiency anemia will check Iron studies will continue home dose of ferrous sulfate CT abd/pelvis - did not show any acute pathology Pt does need to stay in the hospital more than 2 night due to her complex medical problem. So will change her to full admission. I did review my colleague Dr. Perdue's H & P including HPI, PMH, PSH, FH, SH and ROS, no changes noticed Qualifiers: Anemia type: iron deficiency Iron deficiency anemia type: unspecified iron deficiency Qualified Code(s): D50.9 - Iron deficiency anemia, unspecified - Subjective Interval history: Ms. Dobbins is a 66 year old female present to ER for left flank pain started 6 PM yesterday. Patient said that the pain is a sharp 9 out of 10, radiated to left groin area. Patient denies fever. She has chills and nausea. Patient has symptoms of urinary tract infection, include burning and dysuria. Patient was found UTI and left-sided ureter obstruction in the emergency room. Pt was admitted here and started on broad spectrum abx with Zosyn. She was seen by Urologist who did a cystoscope and stent placement. She happened to have acute anemia, which improved with 2 U PRBC. She denied any CP / SOB. Denied any melena / dark colored stools. - Constitutional Vitals: Temp Pulse Resp BP Pulse Ox 99.2 F 71 16 122/68 92 01/11/17 10:36 01/11/17 10:36 01/11/17 10:36 01/11/17 10:36 01/11/17 10:36 General appearance: Present: cooperative, A&O X 3 (Weak), pleasant, no acute distress, answers questions appropriately - Head Head exam: Present: atraumatic, normal inspection - Respiratory Respiratory exam: Present: decreased breath sounds, wheezes. Absent: rales, respiratory distress, rhonchi - Cardiovascular Cardiovascular exam: Present: RRR, +S1, +S2. Absent: systolic murmur - GI/Abdominal GI/Abdominal exam: Present: normal bowel sounds, soft. Absent: rebound, rigid, tenderness - Extremities Exam Extremities exam: Absent: calf tenderness, pedal edema, tenderness - Back Exam Back exam: Absent: CVA tenderness (L), CVA tenderness (R) - Psychiatric Psychiatric exam: Present: normal affect, normal mood Internal Medicine: Result - Labs CBC & Chem 7: 01/11/17 05:59 01/11/17 05:59 Labs: Short CBC 01/11/17 Range/Units 05:59 WBC 4.6 (4.3-11.1) K/mcL Hgb 10.6 L D (11.5-15.4) g/dL Hct 30.3 L (35.3-44.9) % Plt Count 92 L (140-400) K/mcL Neutrophils # 3.5 (1.6-8.9) K/mcL BMP 01/11/17 05:59 Sodium 142 Potassium 3.3 L Chloride 109 Carbon Dioxide 26 BUN 6 L Creatinine 0.72 Glucose 101 H Calcium 8.7 - ABG Interpretation ABG results: PT/INR, D-dimer PT 13.8 Seconds (9.4-12.1) H 01/07/17 09:56 - VTE Documentation of Mechanical Device: Intermittent pneumatic compression device Consult Discharge Plan - Plan Referrals: Ramakrishna Baltazar MD [Partnered Physician] - Prescriptions: levoFLOXacin [Levofloxacin] 500 mg PO DAILY #9 tablet Saccharomyces Boulardii [Florastor] 250 mg PO BID #10 capsule
[2017-01-11] MEDS ORDERED: levoFLOXacin 500 MG TABLET PO SCH (15:00)
[2017-01-12] MEDS: Ondansetron 4 MG/2 ML VIAL IVP PRN (04:22)
[2017-01-12] MEDS: *HR* Morphine 2 MG/ML SYRINGE IVP PRN (04:23)
[2017-01-12] MEDS: *HR* Heparin 5,000 UNIT/ML VIAL SQ SCH (04:23)
[2017-01-12 05:40] LABS: Basophils % 0.2 %; Immature Granulocytes % 0.5 % (0-4); Mean Corpuscular Hemoglobin 32.5 pg (28.0-33.3)
[2017-01-12 05:41] LABS: Eosinophils # 0.1 K/mcL (0.0-0.6); Eosinophils % 1.4 %; Hematocrit 30.5 % (35.3-44.9); Hemoglobin 10.4 g/dL (11.5-15.4); Immature Platelets 4.1 % (1.1-6.1); Lymphocytes # 0.9 K/mcL (0.6-4.6); Lymphocytes % 19.9 %; Mean Corpuscular HGB Conc 34.1 g/dL (31.6-35.5); Mean Corpuscular Volume 95.3 fL (83.0-100.0); Mean Platelet Volume 9.7 fL (9.4-12.4); Monocytes # 0.4 K/mcL (0.0-1.3); Red Cell Distribution Width 16.1 % (11.5-14.5)
[2017-01-12 05:42] LABS: Platelet Count 95 K/mcL (140-400)
[2017-01-12 05:54] LABS: % Iron Saturation 16 % (15-50); Iron 38 mcg/dL (50-170); Transferrin 166 mg/dL (180-382)
--- NOTE | 2017-01-12 07:13 | Urology Progress Note ---
Date of Encounter: 01/12/17 Time of Encounter: 07:11 - Assessment and Plan (1) UTI (urinary tract infection) Current Visit: Yes Status: Acute Assessment and plan: Continue levofloxacin for 2 week total course. Qualifiers: Urinary tract infection type: acute cystitis Hematuria presence: with hematuria Qualified Code(s): N30.01 - Acute cystitis with hematuria (2) Ureteral calculus, left Current Visit: Yes Status: Acute Assessment and plan: Will arrange for ureteroscopy at a later date. (3) Anemia Current Visit: Yes Status: Acute Assessment and plan: H&H is stable. Okay to d/c home per my standpoint. Qualifiers: Anemia type: iron deficiency Iron deficiency anemia type: unspecified iron deficiency Qualified Code(s): D50.9 - Iron deficiency anemia, unspecified Progress Note Narrative: POD #5 s/p left ureteral stent placement. Doing well today. H&H is stable. Objective Initial Vital Signs Temp Pulse Resp BP Pulse Ox 97.5 F L 74 22 180/90 100 01/07/17 04:52 01/07/17 04:52 01/07/17 04:52 01/07/17 04:52 01/07/17 04:52 - General physical appearance Present: well developed, well nourished, no distress - Respiratory Present: normal respiratory effort - Abdomen Present: soft - Labs 01/12/17 05:06 01/11/17 05:59 - VTE Documentation of Mechanical Device: Intermittent pneumatic compression device Consult Discharge Plan - Plan Referrals: Ramakrishna Baltazar MD [Partnered Physician] - Prescriptions: levoFLOXacin [Levofloxacin] 500 mg PO DAILY #9 tablet Saccharomyces Boulardii [Florastor] 250 mg PO BID #10 capsule
[2017-01-12] MEDS: Famotidine 20 MG TABLET PO SCH (09:06)
[2017-01-12] MEDS: Tiotropium 18 MCG inhalation IH SCH (09:54)
[2017-01-12] MEDS: 0.9 % Sodium Chloride 1,000 ML IVC SCH (09:58)
[2017-01-12 10:30] VITALS: BP 149/75
[2017-01-12] MEDS ORDERED: *HR* OxyCODONE/APAP 5/325 TABLET PO ONE (11:44)
[2017-01-12] MEDS ORDERED: Ondansetron ODT 4 MG TAB.RAPDIS SL ONE (11:45)
[2017-01-12] MEDS ORDERED: Ondansetron ODT 4 MG TAB.RAPDIS SL PRN (12:06)
--- NOTE | 2017-01-12 12:31 | Discharge Summary ---
Date of Encounter: 01/12/17 Time of Encounter: 12:26 - Discharge Diagnosis (1) UTI (urinary tract infection) Priority: Primary Status: Acute Qualifiers: Urinary tract infection type: acute cystitis Hematuria presence: with hematuria Qualified Code(s): N30.01 - Acute cystitis with hematuria (2) Acute unilateral obstructive uropathy Priority: Primary Status: Acute (3) Ureteral calculus, left Priority: Secondary Status: Acute (4) CAD (coronary artery disease) Priority: Secondary Status: Chronic Qualifiers: Coronary Disease-Associated Artery/Lesion type: bypass graft [place] vs. transplanted heart: [place] heart Associated angina: without angina Qualified Code(s): I25.810 - Atherosclerosis of coronary artery bypass graft(s) without angina pectoris (5) Anemia Priority: Secondary Status: Acute Qualifiers: Anemia type: iron deficiency Iron deficiency anemia type: unspecified iron deficiency Qualified Code(s): D50.9 - Iron deficiency anemia, unspecified - Discharge Medications Prescriptions: OxyCODONE/APAP 5/325 [Percocet 5/325 MG] 1 each PO Q6HR PRN #15 tablet PRN Reason: Pain levoFLOXacin [Levofloxacin] 500 mg PO DAILY #9 tablet Saccharomyces Boulardii [Florastor] 250 mg PO BID #10 capsule Home Medications: Albuterol Sulfate [Proair Hfa] 2 puff IH Q4-6H PRN 01/07/17 [History] Clopidogrel [Plavix] 75 mg PO DAILY 01/07/17 [History] Colesevelam HCl [Welchol] 625 mg PO DAILY 01/07/17 [History] Ferrous Sulfate [Iron] 325 mg PO DAILY 01/07/17 [History] Fluticasone Propionate Nasal [Flonase] 1 spr NS DAILY 01/07/17 [History] Nebivolol [Bystolic] 5 mg PO DAILY 01/07/17 [History] Nitroglycerin [Nitrostat] 0.4 mg SL Q5M PRN 01/07/17 [History] Pantoprazole Sodium [Protonix] 40 mg PO DAILY 01/07/17 [History] Ranitidine HCl [Zantac] 150 mg PO DAILY 01/07/17 [History] Sertraline [Zoloft] 200 mg PO DAILY 01/07/17 [History] Tiotropium [Spiriva] 18 mcg IH DAILY 01/07/17 [History] Saccharomyces Boulardii [Florastor] 250 mg PO BID #10 capsule 01/11/17 [Rx] levoFLOXacin [Levofloxacin] 500 mg PO DAILY #9 tablet 01/11/17 [Rx] OxyCODONE/APAP 5/325 [Percocet 5/325 MG] 1 each PO Q6HR PRN #15 tablet 01/12/17 [Rx] Allergies/Adverse Reactions: 3 Allergy/AdvReac Type Severity Reaction Status Date / Time naproxen AdvReac Nausea Verified 01/07/17 04:52 Date of admission: 01/10/17 16:15 Primary care physician: PCP NONE - Patient Status Disposition: Home, Self-Care Condition: Good Overall status at discharge: patient is back to baseline - Discharge Instructions Follow Up With: Ramakrishna Baltazar MD [Partnered Physician] - Additional Instructions: f/u with PCP in one week f/u with Urologist in 1 week - Diet and Activity Activity: increase activity as tolerated Diet: low salt diet Hospital course: Ms. Dobbins is a 66 year old female present to ER for left flank pain started 6 PM yesterday. Patient said that the pain is a sharp 9 out of 10, radiated to left groin area. Patient denies fever. She has chills and nausea. Patient has symptoms of urinary tract infection, include burning and dysuria. Patient was found UTI and left-sided ureter obstruction in the emergency room. Pt was admitted here and started on broad spectrum abx with Zosyn. She was seen by Urologist who did a cystoscope and stent placement. Her urine cx started growing Klebsiella. Urologist recommend to treat her with 2 weeks of Abx. Switched to PO Levofloxacin y/d. She happened to have acute anemia hb dropped down to 7.6 , could be due to UTI / Chronic Iron def anemia. Now her Hb improved and stable around 0.4 after 2 U PRBC. She denied any CP / SOB. Denied any melena / dark colored stools. Will sent her home today in stable condition. Recommend to f/u with PCP and Urologist in 1-2 weeks - Time Spent with Patient Total time spent providing and/or coordinating discharge services: - Constitutional Vitals: Temp Pulse Resp BP Pulse Ox 97.6 F 74 17 149/75 92 01/12/17 10:26 01/12/17 10:26 01/12/17 10:26 01/12/17 10:26 01/12/17 10:26 General appearance: Present: cooperative, A&O X 3, pleasant, no acute distress, answers questions appropriately - Head Head exam: Present: atraumatic, normal inspection - Respiratory Respiratory exam: Present: decreased breath sounds, wheezes. Absent: rales, respiratory distress, rhonchi - Cardiovascular Cardiovascular exam: Present: RRR, +S1, +S2. Absent: diastolic murmur, gallop, rubs, systolic murmur - GI/Abdominal GI/Abdominal exam: Present: soft. Absent: rebound, rigid, tenderness - Extremities Exam Extremities exam: Absent: calf tenderness, pedal edema, tenderness - Back Exam Back exam: Absent: CVA tenderness (L), CVA tenderness (R) - Psychiatric Psychiatric exam: Present: normal affect, normal mood - VTE Documentation of Mechanical Device: Intermittent pneumatic compression device
[2017-01-12] MEDS: Fluticasone Propionate Nasal 50 MCG/SPRAY BOTTLE NS SCH (13:39)
== END 2017-01-12 15:09 | disposition home or self-care (01) | DRG 694 ==
LOC: EMEROO 04:50 → 3ANU 04:50
PROVIDERS: ADMIT Family Medicine; ATTEND Internal Medicine